=== PATIENT | male | born 1970 | race Two or more races ===

== ENCOUNTER 2018-06-03 18:15 | Inpatient (IN) | payer OTHER ==
[2018-06-03 19:43] LABS: Absolute Lymphocytes (CBC) 0.9 K/uL (0.7-4.9); Absolute Monocytes 0.5 K/uL (0.1-1.3); Absolute Neutrophil 2.9 K/uL (1.8-8.0); Basophils % 0.8 % (0-1.3); Hematocrit 37.2 % (39.6-49.0); Lymphocytes % 19.7 % (15.3-44.8); MPV 9.5 fL (7.6-11.3); Monocytes % 11.3 % (3.3-12.3); RBC Red Blood Cell Count 4.55 M/uL (4.33-5.43)
[2018-06-03] MEDS ORDERED: NA CHLORIDE 0.9% 1,000 ML ONE (19:48)
[2018-06-03 19:55] LABS: Potassium 3.4 mmol/L (3.5-5.1)
--- NOTE | 2018-06-03 20:13 | ER ---
Nurse's Notes [facility] Name: Ned Melgar Age: 48 yrs Sex: Male : 1970 Arrival Date: 06/03/2018 Time: 18:17 Bed 6 Private MD: Diagnosis: Septic Arthritis left knee Presentation: 06/03 18:21 Presenting complaint: Sent by Dr. Canas. Pt lad left knee aspirated, WBC 60k, told hb to come to ED. Now c/o left knee pain 8/10 and fever. TMAX 102. Transition of care: patient was not received from another setting of care. Onset of symptoms was June 01, 2018. Risk Assessment: Do you want to hurt yourself or someone else?. Care prior to arrival: Medication(s) given: Tylenol, at 1400. 18:21 Method Of Arrival: Wheelchair hb 18:21 Acuity: NGUYỄN 3 hb 19:13 Initial Sepsis Screen: Does the patient meet any 2 criteria? HR > 90 bpm. No. Patient's jl7 initial sepsis screen is negative. Does the patient have a suspected source of infection? Yes: Skin breakdown/wound. Historical: - Allergies: 18:24 No Known Allergies; hb - Home Meds: 18:24 Symbicort inhalation inhalation [Active]; Albuterol Inhl [Active]; hb - PMHx: 18:24 Asthma; hb - PSHx: 18:24 None; hb - Immunization history:: Adult Immunizations up to date. - Social history:: Smoking status: Patient/guardian denies using tobacco. - Ebola Screening: : No symptoms or risks identified at this time. Screenin:13 Abuse screen: Denies threats or abuse. Denies injuries from another. Nutritional jl7 screening: No deficits noted. Tuberculosis screening: No symptoms or risk factors identified. Fall Risk IV access (20 points). Gait- Impaired (20 pts.). Total Alcaraz Fall Scale indicates Low Risk Score (25-44 pts). Fall prevention measures have been instituted. Side Rails Up X 2 Placed close to Nursing Station Frequent Obs/Assesments occuring Family Present and informed to notify staff if they need to leave bedside As available Patient and Family Educated on Fall Prevention Program and strategies. Assessment: 18:43 General: Appears uncomfortable, Behavior is calm, cooperative. Pain: Complains of pain pc1 in left knee Pain radiates to left leg Pain currently is 8 out of 10 on a pain scale. Quality of pain is described as pressure, Is continuous. 18:45 Neuro: Level of Consciousness is awake, alert, obeys commands, Oriented to person, pc1 place, time, situation, Library Director are equal bilaterally Weakness in left leg(s) foot/feet Speech is normal. Cardiovascular: Capillary refill < 3 seconds in bilateral fingers Patient's skin is warm and dry. Respiratory: Airway is patent Respiratory effort is even, unlabored, Respiratory pattern is regular, symmetrical, Breath sounds are clear bilaterally. GI: No signs and/or symptoms were reported involving the gastrointestinal system. : No signs and/or symptoms were reported regarding the genitourinary system. EENT: No signs and/or symptoms were reported regarding the EENT system. Derm: Skin is intact, is healthy with good turgor, Skin is dry, Skin is pink, warm \T\ dry. Skin temperature is warm. Musculoskeletal: Capillary refill < 3 seconds, in bilateral fingers. Range of motion: limited in left knee and left ankle Swelling present in left ankel and left knee Tenderness present in left knee Reports pain in left knee. 19:40 Reassessment: Patient appears in no apparent distress at this time. Patient and/or jd3 family updated on plan of care and expected duration. Pain level reassessed. Patient is alert, oriented x 3, equal unlabored respirations, skin warm/dry/pink. awaiting blood results. 20:54 Reassessment: Patient appears in no apparent distress at this time. Patient and/or jd3 family updated on plan of care and expected duration. Pain level reassessed. Patient is alert, oriented x 3, equal unlabored respirations, skin warm/dry/pink. Vital Signs: 18:24 BP 161 / 100; Pulse 112; Resp 16; Temp 99; Pulse Ox 100% on R/A; Pain 8/10; hb 18:45 BP 145 / 103; Pulse 116; Resp 18; Pulse Ox 98% on R/A; Pain 8/10; pc1 19:41 BP 143 / 96; Pulse 112; Resp 18 S; Pulse Ox 100% on R/A; jd3 20:53 BP 168 / 101; Pulse 111; Resp 16 S; Pulse Ox 100% on R/A; jd3 ED Course: 18:17 Patient arrived in ED. ss4 18:23 Triage completed. hb 18:24 Arm band placed on. hb 18:26 Nissa Rosario, CINDY is Primary Nurse. jl7 18:37 Greyson Guillen PA is PHCP. jr8 18:37 Rj Madrigal MD is Attending Physician. jr8 19:14 Patient has correct armband on for positive identification. Placed in gown. Bed in low jl7 position. Call light in reach. Side rails up X 1. Pulse ox on. NIBP on. 19:19 Primary Nurse role handed off by Nissa Rosario RN jl7 19:31 Aureliano Fernandez, CINDY is Primary Nurse. jd3 20:12 Tran Junior MD is Hospitalizing Provider. jr8 21:14 No provider procedures requiring assistance completed. Patient admitted, IV remains in jd3 place. Administered Medications: 19:40 Drug: NS 0.9% 1000 ml Route: IV; Rate: 1000 ml; Site: right forearm; jd3 21:16 Follow up: Response: No adverse reaction; IV Status: Completed infusion jd3 19:59 CANCELLED (Physician Discretion): vancoMYCIN 1 grams IVPB once over 2 hrs jr8 19:59 CANCELLED (Physician Discretion): Rocephin 1 grams IV at calculated rate once; Given jr8 slow IV push per pharmacy instructions Outcome: 19:14 Attestation : I agree with everything charted by Thien Quintanilla, Student Nurse. jl7 20:12 Decision to Hospitalize by Provider. jr8 21:15 Admitted to OR accompanied by nurse, via wheelchair, with chart, Report called to j report given to OR nurse 21:15 Condition: stable 21:15 Instructed on the need for admit, Demonstrated understanding of instructions. 21:16 Patient left the ED. jd3 Signatures: Greyson Guillen PA PA jr8 Hattie Montana RN RN Nissa Rosario RN RN jl7 Aureliano Fernandez RN RN octaviano Quintanilla, Ara Whitley ss4 Corrections: (The following items were deleted from the chart) 18:24 18:21 Presenting complaint: Sent by Dr. Canas. Pt lad left knee aspirated, WBC 60k, hb told to come to ED. Pt c/o left knee pain 8/ and fever. TMAX 102 hb 18:51 18:43 Pain: Complains of pain in left knee pc1 pc1
--- NOTE | 2018-06-03 20:13 | EDPHYS ---
Physician Documentation [facility] Name: Ned Melgar Age: 48 yrs Sex: Male : 1970 Arrival Date: 06/03/2018 Time: 18:17 Bed 6 Private MD: ED Physician Rj Madrigal HPI: 06/03 19:50 This 48 yrs old Male presents to ER via Wheelchair with complaints of Knee Pain. jr8 19:50 Onset: The symptoms/episode began/occurred gradually, 3 day(s) ago. Modifying factors: jr8 The symptoms are alleviated by nothing. the symptoms are aggravated by movement, weight bearing, bending knee. Associated signs and symptoms: Pertinent positives: fever, swelling, warmth. Treatment prior to arrival includes: alex wrap, elevation of the extremity, therapeutic/diagnostic tap . Severity of symptoms: At their worst the symptoms were moderate, in the emergency department the symptoms have improved, mildly. The patient has not experienced similar symptoms in the past. The patient has been recently seen by a physician:. Patient stated that he strained his knee the other day. Had a lot of swelling. Stated that he saw ortho and had it drained. Cytology came back with elevated WBC count. Was sent to ED for further work up to assess for septic joint. Patient stated that he had been running fever . Historical: - Allergies: 18:24 No Known Allergies; hb - Home Meds: 18:24 Symbicort inhalation inhalation [Active]; Albuterol Inhl [Active]; hb - PMHx: 18:24 Asthma; hb - PSHx: 18:24 None; hb - Immunization history:: Adult Immunizations up to date. - Social history:: Smoking status: Patient/guardian denies using tobacco. - Ebola Screening: : No symptoms or risks identified at this time. ROS: 19:56 Eyes: Negative for injury, pain, redness, and discharge, ENT: Negative for injury, jr8 pain, and discharge, Neck: Negative for injury, pain, and swelling, Cardiovascular: Negative for chest pain, palpitations, and edema, Respiratory: Negative for shortness of breath, cough, wheezing, and pleuritic chest pain, Abdomen/GI: Negative for abdominal pain, nausea, vomiting, diarrhea, and constipation, Back: Negative for injury and pain, Skin: Negative for injury, rash, and discoloration, Neuro: Negative for headache, weakness, numbness, tingling, and seizure. 19:56 Constitutional: Positive for fever. 19:56 MS/extremity: Positive for pain, swelling, tenderness, warmth, of the left knee. Exam: 19:56 Eyes: Pupils equal round and reactive to light, extra-ocular motions intact. Lids and jr8 lashes normal. Conjunctiva and sclera are non-icteric and not injected. Cornea within normal limits. Periorbital areas with no swelling, redness, or edema. ENT: Nares patent. No nasal discharge, no septal abnormalities noted. Tympanic membranes are normal and external auditory canals are clear. Oropharynx with no redness, swelling, or masses, exudates, or evidence of obstruction, uvula midline. Mucous membranes moist. Neck: Trachea midline, no thyromegaly or masses palpated, and no cervical lymphadenopathy. Supple, full range of motion without nuchal rigidity, or vertebral point tenderness. No Meningismus. Cardiovascular: Regular rate and rhythm with a normal S1 and S2. No gallops, murmurs, or rubs. Normal PMI, no JVD. No pulse deficits. Respiratory: Lungs have equal breath sounds bilaterally, clear to auscultation and percussion. No rales, rhonchi or wheezes noted. No increased work of breathing, no retractions or nasal flaring. Abdomen/GI: Soft, non-tender, with normal bowel sounds. No distension or tympany. No guarding or rebound. No evidence of tenderness throughout. Back: No spinal tenderness. No costovertebral tenderness. Full range of motion. Skin: Warm, dry with normal turgor. Normal color with no rashes, no lesions, and no evidence of cellulitis. Neuro: Awake and alert, GCS 15, oriented to person, place, time, and situation. Cranial nerves II-XII grossly intact. Motor strength 5/5 in all extremities. Sensory grossly intact. Cerebellar exam normal. Normal gait. 19:56 Musculoskeletal/extremity: Extremities: grossly normal except: noted in the left knee: pain, swelling, tenderness, warm to touch. No erythema noted, ROM: full active range of motion, limited passive range of motion, limited active range of motion due to pain, limited passive range of motion due to pain, Circulation is intact in all extremities. Sensation intact. Vital Signs: 18:24 BP 161 / 100; Pulse 112; Resp 16; Temp 99; Pulse Ox 100% on R/A; Pain 8/10; hb 18:45 BP 145 / 103; Pulse 116; Resp 18; Pulse Ox 98% on R/A; Pain 8/10; pc1 19:41 BP 143 / 96; Pulse 112; Resp 18 S; Pulse Ox 100% on R/A; jd3 20:53 BP 168 / 101; Pulse 111; Resp 16 S; Pulse Ox 100% on R/A; jd3 MDM: 18:37 Patient medically screened. jr8 19:56 Data reviewed: vital signs, nurses notes, lab test result(s), and as a result, I will [facility] admit patient. Data interpreted: Pulse oximetry: on room air is 100 %. Interpretation: normal. Counseling: I had a detailed discussion with the patient and/or guardian regarding: the historical points, exam findings, and any diagnostic results supporting the discharge/admit diagnosis, lab results, the need for further work-up and treatment in the hospital. 20:11 ED course: Consulted Dr. Proctor. Wants to take patient to surgery . [facility] 06/03 19:14 Order name: CBC with Diff; Complete Time: 19:50 [facility] 06/03 19:14 Order name: Basic Metabolic Panel; Complete Time: 19:57 [facility] 06/03 19:14 Order name: Blood Culture Adult (2) [facility] 06/03 19:14 Order name: IV; Complete Time: 19:32 [facility] 06/03 20:00 Order name: Surgical Prep; Complete Time: 20:18 [facility] 06/03 20:00 Order name: Surgical Consent; Complete Time: 20:18 [facility] 06/03 20:00 Order name: NPO; Complete Time: 20:14 [facility] 06/03 20:47 Order name: CONS Pharmacy Consult [facility] 06/03 20:47 Order name: CONS Physician Consult [facility] 06/03 20:47 Order name: NPO EDKS Administered Medications: 19:40 Drug: NS 0.9% 1000 ml Route: IV; Rate: 1000 ml; Site: right forearm; jd3 21:16 Follow up: Response: No adverse reaction; IV Status: Completed infusion jd3 19:59 CANCELLED (Physician Discretion): vancoMYCIN 1 grams IVPB once over 2 hrs jr8 19:59 CANCELLED (Physician Discretion): Rocephin 1 grams IV at calculated rate once; Given jr8 slow IV push per pharmacy instructions Disposition: 06/04 07:22 Co-signature as Attending Physician, Rj Madrigal MD I agree with the assessment and kdr plan of care. Disposition: 06/03/18 20:12 Hospitalization ordered by Tran Junior for Inpatient Admission. Preliminary diagnosis is Septic Arthritis left knee. - Bed requested for Telemetry/MedSurg (observation). - Status is Inpatient Admission. jd3 - Condition is Stable. - Problem is new. - Symptoms are unchanged. UTI on Admission? No Signatures: Dispatcher [employer] EDMS Karen Rajan RN RN aa1 Rj Madrigal MD MD [facility] Greyson Guillen PA PA jr8 Hattie Montana RN RN Aureliano Fernandez RN RN jd3 Corrections: (The following items were deleted from the chart) 06/03 19:59 19:56 vancoMYCIN 1 grams IVPB once over 2 hrs ordered. 8 8 19:59 19:56 Rocephin 1 grams IV at calculated rate once; Given slow IV push per pharmacy jr8 instructions ordered. jr8 20:41 20:12 Hospitalization Ordered by Tran Junior MD for Inpatient Admission. Preliminary aa1 diagnosis is Septic Arthritis left knee. Bed requested for Telemetry/MedSurg (Inpatient). Status is Inpatient Admission. Condition is Stable. Problem is new. Symptoms are unchanged. UTI on Admission? No. jr8 20:41 20:41 06/03/2018 20:12 Hospitalization Ordered by Tran Junior MD for Inpatient aa1 Admission. Preliminary diagnosis is Septic Arthritis left knee. Bed requested for Operating Room. Status is Inpatient Admission. Condition is Stable. Problem is new. Symptoms are unchanged. UTI on Admission? No. aa1 21:16 20:41 06/03/2018 20:12 Hospitalization Ordered by Tran Junior MD for Inpatient jd3 Admission. Preliminary diagnosis is Septic Arthritis left knee. Bed requested for Telemetry/MedSurg (observation). Status is Inpatient Admission. Condition is Stable. Problem is new. Symptoms are unchanged. UTI on Admission? No. aa1
[2018-06-03] MEDS ORDERED: ACETAMINOPHEN 500 MG TAB PO PRN (20:44)
[2018-06-03] MEDS ORDERED: SUCCINYLCHOLINE 20 MG/ML (10 ML) IV ONE ×2 (21:18→21:19)
[2018-06-03] MEDS ORDERED: PROPOFOL 200 MG/20 ML VIAL IV ONE (21:23)
[2018-06-03] MEDS ORDERED: LIDOCAINE 2% MPF 5 ML VIAL ONE (21:24)
[2018-06-03] MEDS ORDERED: FENTANYL CITR 100 MCG/2 ML ONE ×2 (21:24→22:13)
[2018-06-03] MEDS ORDERED: ROCURONIUM 50 MG/5 ML VIAL IV ONE (21:24)
[2018-06-03] MEDS ORDERED: Ringers Lactate 1,000 ML IV ONE (21:31)
[2018-06-03] MEDS ORDERED: ONDANSETRON 4 MG/2 ML VIAL ONE (22:00)
[2018-06-03] MEDS ORDERED: KETOROLAC 30 MG/ML INJ ONE (22:00)
[2018-06-03] MEDS ORDERED: DEXAMETHASONE 10 MG/ML VIAL ONE (22:06)
[2018-06-03] MEDS ORDERED: LABETALOL 20 MG/4ML SYRINGE IV ONE (22:21)
[2018-06-03] MEDS: HYDROMORPHONE HCL 1 MG/ML INJ ONE ×2 (23:00→23:03)
--- NOTE | 2018-06-03 23:01 | P.BOP ---
Preoperative diagnosis: left knee probable septic arthritis Postoperative diagnosis: same Primary procedure: left knee arthoscopic irrigation and synovectomy Estimated blood loss: 20 ccs Specimen: cx sent of synovial fluid Anesthesia: General Complications: None Drain(s): Wound drain Transferred to: Recovery Room Condition: Good
[2018-06-03] MEDS ORDERED: DIPHENHYDRAMINE 50 MG/ML VIAL ONE (23:23)
[2018-06-04] MEDS: NA CHLORIDE 0.9% 1,000 ML IV SCH ×4 (00:09→17:00)
[2018-06-04] MEDS: MORPHINE 2 MG/ML SYR IV PRN ×2 (00:18→03:56)
[2018-06-04 00:44] VITALS: BMI 25.8
[2018-06-04] MEDS ORDERED: NAPROXEN 250 MG TAB PO PRN (01:13)
[2018-06-04] MEDS: Levofloxacin 750mg IV 750 MG/150 ML BAG IV SCH (01:47)
[2018-06-04] MEDS ORDERED: VANCOMYCIN 1 GM/VIAL ONE (03:47)
[2018-06-04] MEDS ORDERED: VANCOMYCIN 500 MG/VIAL ONE (03:49)
[2018-06-04] MEDS: VANCOMYCIN 1.25 GM in NA CHLORIDE 0.9% 250 ML IVPB SCH ×2 (03:51→14:50)
[2018-06-04] MEDS ORDERED: NA CHLORIDE 0.9% 250 ML ONE (03:52)
--- NOTE | 2018-06-04 06:16 | CON ---
Date of Consultation: 06/03/2018 History: This is my first time seeing this patient to my knowledge. He is a 48 -year-old male who has asthma, was treated with albuterol and Symbicort. Otherwise denies any other medical history. He gives a history of his knee. Quite sometime ago, he injured his knee. He was seen by another orthopedist who drained his knee and he was diagnosed with an ACL strain, unsure whether or not this was a complete tear or partial tear. He apparently went on to do fairly well until recently when he had another injury to his knee. He was seen by an outside physician, Dr. Mark Rojas, and Giancarlo Whitley PA-C. There was some concern for septic knee. Therefore, an aspiration was done and under report of Dr. Rojas, he had white blood cell count of 60,000. He has had increasing left knee pain, becoming so severe that he was unable to participate in having any labs drawn for this, basically being homebound. He arrived back in Dr. Rojas's office now with a fever. Family says his fever has been up to 102. Physical Examination: Vital Signs: He is slightly warm overall. He does have an increased temperature of 99. His white blood cell count is normal at 4.4. Musculoskeletal: His knee does have a 2+ effusion, pain with any movement or manipulation. There is some mild erythema. Assessment: A 48-year-old male now with a fever, septic knee, and an aspirate which is extremely suspicious for septic knee. Plan: At this time, we spoke with Anesthesia, and although he has not been strictly NPO, I think that this has been going on long enough with regard to possible septic arthritis in his knee. I think that placing this young healthy individual for an overnight stay waiting operative intervention tomorrow is most likely going to put his knee at permanent risk. Therefore, all risks, benefits, and alternatives to arthroscopic irrigation and debridement with admission and IV antibiotics have been discussed with the patient. He will be admitted under the care of the hospitalist. All his questions have been invited and answered today. /POOJA Voice ID: [id number] Report ID: [id number] JACQUELYN
--- NOTE | 2018-06-04 06:56 | OP ---
Date of Procedure: 06/03/2018 Surgeon: Mauricio Proctor MD Preoperative Diagnosis: Probable septic arthritis, left knee. Postoperative Diagnosis: Probable septic arthritis, left knee. Procedure: Left arthroscopic irrigation and debridement of knee with placement of a drain. Estimated Blood Loss: 20 cc. Complications: There were no complications. Specimen: There were no pathology specimens sent. However, there are 2 cultures sent. Indications For Operation: Mr. Melgar is a 48-year-old male who unfortunately started having pain in his knee reportedly after an injury. He was seen at an outside clinic by another orthopedist and PA. An aspiration was done at that time. They sent the aspirate to the lab and also wanted him to go for a blood work. Unfortunately, his pain became so severe by his report that he was unable to proceed to the lab to get his blood work. However, he did return with increased pain and fever to the original orthopedist. This orthopedist is unavailable, but I had direct communication with him that there were 60,000 white cells. On visual inspection of the patient, he had 2+ effusion with pain with any movement or manipulation of his knee. He also had reported temperature of 102 per his family earlier today, although he is only slightly febrile at 99. His white count today is normal at 4.4. All risks, benefits, and alternatives to arthroscopic irrigation and debridement for presumed septic knee were discussed with the patient. He and his family state they understand things as presented and wished to proceed. Description Of Procedure: The patient was taken to the operating room and placed in supine position. General anesthesia was obtained by staff. Following this, well-padded tourniquet placed on superior left thigh. His left lower extremity was then prepped and draped in the usual sterile fashion for the procedure. Following this, a standard superomedial arthroscopy portal was then placed for placement of a drainage needle. Some walter, although not frankly purulent fluid was expressed approximately 120 cc. This was placed on culture swabs and sent for culture. Following this, a standard inferolateral arthroscopy portal was then placed for placement of the camera. Camera was then placed into the knee and approximately 2 L of sterile saline was placed and allowed to run freely. This was followed by investigation of the knee. Did not appear to have any medial or lateral meniscal tear. There did appear to be some damage to the ACL; however, the ACL in general appeared to be intact. There was abundant synovial tissue throughout the knee with some wispy bands which appeared to be quite tenuous. An inferomedial arthroscopy was then performed under direct vision using a needle for localization. This allowed for placement of a probe and a shaver. The knee was then sequentially debrided of synovium starting in the notch. This was followed by debriding from approximately 2 o'clock position all the way down to approximately 8 o'clock position. On camera, I was able to see into the lateral gutter and there did appear to be quite a bit of excessive synovium in this area as well, and to complete the synovectomy, a superolateral portal was made for placement of a shaver, synovium in this area was then shaved. A complete synovial debridement was obtained. Following this, the inferior arthroscopy portal and lateral arthroscopy portals were closed using azael. A medium Hemovac drain had been placed in the superomedial portal and this was closed using 2-0 nylon suture with a small loop around the drain itself. The knee was brought through full range of motion. There was no sign of block. Pivot-shift test was performed both before and after the procedure to ensure that the ACL was functional. There was no sign of pivot shift or rotatory instability either before or after the procedure. Following this, he was placed in a very well-padded sterile dressing as well as a knee immobilizer, awakened and taken to recovery room in good condition. There were no complications. /POOJA Voice ID: [id number] Report ID: [id number] JACQUELYN
[2018-06-04] MEDS ORDERED: INFLUENZA VACCINE (for 3y+) 0.5 ML DOSE IMVAC ONE (08:00)
--- NOTE | 2018-06-04 08:36 | P.HP ---
Certification for Inpatient Patient admitted to: Inpatient With expected LOS: >2 Midnights Patient will require the following post-hospital care: Nursing Home Practitioner: I am a practitioner with admitting privileges, knowledge of patient current condition, hospital course, and medical plan of care. Services: Services provided to patient in accordance with Admission requirements found in Title 42 Section 412.3 of the Code of Federal Regulations Patient History Date of Service: 06/03/18 Reason for admission: septic arthritis History of Present Illness: Patient is a 48-year-old gentleman who came to the hospital with swelling of the left knee. Patient was found to have septic arthritis. Patient started having problems with his knee in early April. He was out of town working and he developed some fluid. This was drained by an orthopedic in [place], [place]. He had done well up until a few days ago when the knees swell up after falling. He went to Dr. Rojas in his office performed an arthrocentesis. White blood cell can back elevated at 60,000 thousand. Patient was admitted to the hospital for further evaluation. Orthopedic surgeon, at [place] to come to the OR to clean out the knee. Patient will need IV antibiotic therapy pending culture results. Allergies No Known Allergies Allergy (Verified 12/04/13 05:13) Home Medications: Albuterol Inhaler [Ventolin Inhaler*] 2 puff IH PRN PRN 06/04/18 Budesonide/Formoterol Fumarate [Symbicort 160-4.5 Mcg Inhaler] 2 puff IH BID - Past Medical/Surgical History Has patient received pneumonia vaccine in the past: No Diabetic: No -: Asthma -: Pancreatitis - Family History Mother Medical History: Cancer Notes: Stomach cancer Brother Medical History: Heart disease Father Medical History: Liver disease - Social History Smoking Status: Never smoker Alcohol use: Yes CD- Drugs: No Caffeine use: Yes Place of Residence: Home Review of Systems 10-point ROS is otherwise unremarkable Physical Examination - Vital Signs Temperature: 97.6 F Blood Pressure: 138/78 Pulse: 81 Respirations: 18 Pulse Ox (%): 98 - Physical Exam General: Alert, In no apparent distress, Oriented x3 HEENT: Atraumatic, PERRLA, Mucous membr. moist/pink, EOMI, Sclerae nonicteric Neck: Supple, 2+ carotid pulse no bruit, No LAD, Without JVD or thyroid abnormality Respiratory: Clear to auscultation bilaterally, Normal air movement Cardiovascular: Regular rate/rhythm, Normal S1 S2, No murmurs Gastrointestinal: Normal bowel sounds, Soft and benign, Non-distended, No tenderness Musculoskeletal: No clubbing, Swelling, Erythema, Tenderness, Warmth Integumentary: No rashes Neurological: Normal speech, Normal tone, Sensation intact, Cranial nerves 3-12 intact, Normal affect, Abnormal gait, Abnormal strength Lymphatics: No axilla or inguinal lymphadenopathy - Studies Laboratory Data (last 24 hrs) 06/03/18 07:00: Sodium 138, Potassium 3.4 L, BUN 9, Creatinine 0.95, Glucose 124 H 06/03/18 07:00: WBC 4.4, Hgb 12.3 L, Hct 37.2 L, Plt Count 184 Assessment & Plan - Problems (Diagnosis) (1) Septic arthritis Current Visit: Yes Status: Acute Qualifiers: Septic arthritis location: knee Laterality: left - Plan 1. Continue with IV antibiotic 2. Continue with local wound care 3. Orthopedic consultation 4. Gentle IV hydration 5. Monitor CBC 6. Monitor hemodynamics closely 7. Pain control 8. GI and DVT prophylaxis Discharge Plan: Home Plan to discharge in: Greater than 2 days - Advance Directives Does patient have a Living Will: No Does patient have a Durable POA for Healthcare: No - Code Status/Comfort Care Code Status Assessed: Yes Code Status: Full Code Time Spent Managing PTS Care (In Minutes): 45
[2018-06-04] MEDS ORDERED: MORPHINE 2 MG/ML SYR IV PRN (10:42)
[2018-06-04] MEDS: HYDROCODONE/APAP 7.5/325 MG TAB PO SCH ×3 (10:54→23:59)
--- NOTE | 2018-06-04 13:31 | P.PN ---
Subjective Date of Service: 06/04/18 Chief Complaint: septic arthritis Pt seen and examined. Chart Reviewed. Case DW with Ortho. Increase drainage at the left knee. C/o Pain which is not relieved by Morphine. Denies CP, SOB and N/ v Review of Systems 10-point ROS is otherwise unremarkable Physical Examination - Vital Signs Temperature: 97.6 F Blood Pressure: 138/78 Pulse: 81 Respirations: 18 Pulse Ox (%): 98 - Physical Exam General: Alert, In no apparent distress HEENT: Atraumatic, PERRLA, EOMI Neck: Supple, JVD not distended Respiratory: Clear to auscultation bilaterally, Normal air movement Cardiovascular: Regular rate/rhythm, Normal S1 S2 Gastrointestinal: Normal bowel sounds, No tenderness Musculoskeletal: Erythema, Tenderness, Other (Left Knee in splint and wound vac in place. ) Integumentary: No rashes Neurological: Normal speech, Normal tone, Normal affect Lymphatics: No axilla or inguinal lymphadenopathy - Studies Laboratory Data (last 24 hrs) 06/03/18 07:00: Sodium 138, Potassium 3.4 L, BUN 9, Creatinine 0.95, Glucose 124 H 06/03/18 07:00: WBC 4.4, Hgb 12.3 L, Hct 37.2 L, Plt Count 184 Medications List Reviewed: Yes Assessment And Plan - Current Problems (Diagnosis) (1) Septic arthritis Current Visit: Yes Status: Acute Plan: pt with Septic Arthritis. -S.P Incision and Drainage with Orthopedics -IV vanc and levaquin for now -Ortho consulted. -Awaiting Wound culture -pain mgmt with norco suzy and Morphine for breakthrough pain Qualifiers: Septic arthritis location: knee Septic arthritis organism: due to unspecified organism Laterality: left Qualified Code(s): M00.9 - Pyogenic arthritis, unspecified Discharge Plan: Home Plan to discharge in: Greater than 2 days - Code Status/Comfort Care Code Status Assessed: Yes Critical Care: No
[2018-06-04 23:42] VITALS: O2SAT 99
[2018-06-05] MEDS ORDERED: TEMAZEPAM 15 MG CAP PO PRN (00:18)
[2018-06-05] MEDS: VANCOMYCIN 1.25 GM in NA CHLORIDE 0.9% 250 ML IVPB SCH ×2 (01:19→14:00)
[2018-06-05] MEDS: NA CHLORIDE 0.9% 1,000 ML IV SCH ×2 (03:05→13:00)
[2018-06-05] MEDS: Levofloxacin 750mg IV 750 MG/150 ML BAG IV SCH (03:06)
--- NOTE | 2018-06-05 05:09 | PN ---
Date of Progress Note: 06/04/2018 Subjective: The patient is seen today. He is resting in his bed. He has a knee immobilizer on. Th ere is some blood in the drain, however, it appears to have stopped draining. Cultures and Gram stai n from last night's irrigation and debridement are not available. He has been afebrile since surgery and at this time, I instructed the nurses to change dressing and remove the drain and placed back in a sterile dressing and knee immobilizer. He has not seen Physical Therapy yet today. This time, we will most likely see him tomorrow and hopefully he will be up with Physical Therapy. We will check cultures as well. JACI Voice ID: [id number] Report ID: [id number]
[2018-06-05] MEDS: HYDROCODONE/APAP 7.5/325 MG TAB PO SCH ×2 (05:30→11:21)
--- NOTE | 2018-06-05 13:02 | P.DS ---
Admission Date: 06/03/18 Discharge Date: 06/05/18 Disposition: ROUTINE DISCHARGE Discharge Condition: GOOD Reason for Admission: septic arthritis Consultations: Orthopedics - Problems (1) Septic arthritis Current Visit: Yes Status: Acute Qualifiers: Septic arthritis location: knee Septic arthritis organism: due to unspecified organism Laterality: left Qualified Code(s): M00.9 - Pyogenic arthritis, unspecified Brief History of Present Illness: Patient is a 48-year-old gentleman who came to the hospital with swelling of the left knee. Patient was found to have septic arthritis. Patient started having problems with his knee in early April. He was out of town working and he developed some fluid. This was drained by an orthopedic in [place], [place]. He had done well up until a few days ago when the knees swell up after falling. He went to Dr. Rojas in his office performed an arthrocentesis. White blood cell can back elevated at 60,000 thousand. Patient was admitted to the hospital for further evaluation. Orthopedic surgeon, at [place] to come to the OR to clean out the knee. Patient will need IV antibiotic therapy pending culture results. Hospital Course: Overall during the hospital stay pt remained stable. Pt was admitted to the hospital for septic Arthritis. pt was seen at the Dr Rojas office and had arthocentesis and apparently had 60,000 WBC seen on the fluids analysis. pt was thus admitted to the hospital for Washout of the Knee. Pt was seen by Dr Proctor who did cleanout of the knee and wound culture.Culture was negative and thus pt was discharged home under stable condition after being observed for 24hrs. Pt was given Bactrim DS for abx and Tramadol for pain. Pt also worked with PT here in the hospital Vital Signs/Physical Exam: Temp Pulse Resp BP Pulse Ox 97.1 F 96 H 18 168/85 H 100 06/05/18 08:00 06/05/18 08:00 06/05/18 08:00 06/05/18 08:00 06/05/18 08:00 General: Alert, In no apparent distress HEENT: Atraumatic, PERRLA, EOMI Neck: Supple, JVD not distended Respiratory: Clear to auscultation bilaterally, Normal air movement Cardiovascular: Regular rate/rhythm, Normal S1 S2 Gastrointestinal: Normal bowel sounds, No tenderness Musculoskeletal: No tenderness Integumentary: No rashes Neurological: Normal speech, Normal tone, Normal affect Lymphatics: No axilla or inguinal lymphadenopathy Laboratory Data at Discharge: WBC 4.4 K/uL (4.3-10.9) 06/03/18 07:00 Hgb 12.3 g/dL (13.6-17.9) L 06/03/18 07:00 Hct 37.2 % (39.6-49.0) L 06/03/18 07:00 Plt Count 184 K/uL (152-406) 06/03/18 07:00 Sodium 138 mmol/L (136-145) 06/03/18 07:00 Potassium 3.4 mmol/L (3.5-5.1) L 06/03/18 07:00 BUN 9 mg/dL (7-18) 06/03/18 07:00 Creatinine 0.95 mg/dL (0.55-1.3) 06/03/18 07:00 Glucose 124 mg/dL (74-106) H 06/03/18 07:00 Home Medications: Albuterol Inhaler [Ventolin Inhaler*] 2 puff IH PRN PRN 06/04/18 Budesonide/Formoterol Fumarate [Symbicort 160-4.5 Mcg Inhaler] 2 puff IH BID Sulfamethoxazole/Trimethoprim [Bactrim Ds Tablet] 1 each PO BID #20 tablet 06/05 traMADol HCL [Ultram*] 50 mg PO Q6H PRN #30 tab 06/05/18 New Medications: Sulfamethoxazole/Trimethoprim [Bactrim Ds Tablet] 1 each PO BID #20 tablet traMADol HCL [Ultram*] 50 mg PO Q6H PRN #30 tab PRN Reason: Pain Diet: Regular Activity: Ad reinaldo Followup: Mauricio Proctor MD [ACTIVE - CAN ADMIT] - 1 Week
[2018-06-05 13:09] VITALS: BP 119/90; TEMP 97.5
== END 2018-06-05 14:10 | disposition home or self-care (01) | DRG 550 ==
LOC: ER 18:15 → 2ND 20:45
PROVIDERS: ADMIT Hospitalist; ATTEND Family Medicine
PROC: 0SBD4ZX Excision of Left Knee Joint, Percutaneous Endoscopic Approach, Diagnostic (ICD-10-PCS; principal; 2018-06-03 21:00)
DX: M00.9 Pyogenic arthritis, unspecified (principal); J45.909 Unspecified asthma, uncomplicated
CPT/HCPCS: 36415; 80048; 85025; 87040; 87070; 87075; 87205; 88304; 88305; 96360; 96361; 97162; 99285; G0008; J0330; J1100; J1170; J2270; J2405; J2704; J3010; J7030; Q2035

== ENCOUNTER 2019-10-12 12:20 | Observation (INO) | payer OTHER, SELFPAY ==
--- OUTSIDE RECORDS SUMMARY | 2019-10-12 12:22 | XMS REPORT | Continuity of Care Document ---
:1970 Author Organization [facility] t Address [address] [place] [address] Care Team Providers Name Role Phone Romario Crocker Attending Clinician Problems This patient has no known problems. Allergies, Adverse Reactions, Alerts This patient has no known allergies or adverse reactions. Medications This patient has no known medications. Procedures This patient has no known procedures. Encounters Start End Encounter Admission Attending Care Care Encounter Source Date/Time Date/Time Type Type Clinicians Facility Department ID 2018-10-27 2018-10-27 Office DEV Whitley [id number] 13 15:47:24 16:02:24 Visit [facility] [id number] Surgical [id number] Specialti [id number] es 198 [place] 2018-10-27 2018-10-27 Letter DEV Whitley [id number] 15 00:00:00 00:00:00 (Out) [facility] [id number] Surgical [id number] Specialti [id number] es [address] [place] Results This patient has no known results.
[2019-10-12] MEDS ORDERED: NA CHLORIDE 0.9% 1,000 ML ONE ×2 (13:48→15:51)
[2019-10-12] MEDS ORDERED: MORPHINE 4 MG/ML SYR ONE ×2 (13:48→15:42)
[2019-10-12] MEDS ORDERED: ONDANSETRON 4 MG/2 ML VIAL ONE (13:48)
[2019-10-12 14:07] LABS: Absolute Lymphocytes (CBC) 0.7 K/uL (0.7-4.9); Basophils % 0.4 % (0-1.3); Hematocrit 38.3 % (39.6-49.0); Lymphocytes % 7.7 % (15.3-44.8); RBC Red Blood Cell Count 4.72 M/uL (4.33-5.43)
[2019-10-12 14:23] LABS: Albumin 3.5 g/dL (3.4-5.0); Bilirubin Direct 0.1 mg/dL (0-0.2); Bilirubin Total 0.4 mg/dL (0.2-1.0)
[2019-10-12 14:29] LABS: Blood Morphology Comment NOT SEEN (NOT SEEN); Platelet Estimate ADEQ
--- NOTE | 2019-10-12 14:31 | RAD REPORT ---
EXAM DESCRIPTION: CT - Abdomen Pelvis W Contrast - 10/12/2019 2:02 pm CLINICAL HISTORY: ABD PAIN, pain primarily epigastric, history of pancreatitis COMPARISON: CT ABD PELVIS W CONTRAST dated 11/25/2013 TECHNIQUE: Biphasic, helical CT imaging of the abdomen and pelvis was performed following 100 ml non -ionic IV contrast. No oral contrast administered. All CT scans are performed using dose optimization technique as appropriate and may include automated exposure control or mA/KV adjustment according to patient size. FINDINGS: No acute lung base abnormality. A few small pulmonary nodules are present under 6 mm in si ze. In the absence of any risk factors for this patient, no follow-up is recommended for this nodule pattern. Liver shows normal size with a very pronounced, diffuse fatty infiltration pattern. No focal liver le sions. Portal vein is normal. No splenic abnormality identified. Pancreatic calcifications are presen t. No solid or cystic mass. No acute pancreatitis findings. Gallbladder and biliary tree are also wit hout suspicious finding. Gallstones can be occult on CT imaging. Symmetric renal function is seen with no hydronephrosis or suspicious renal mass. No pyelonephritis o r acute parenchymal process. No bladder abnormalities. No adrenal abnormalities. No gastric dilatation or wall thickening. Duodenum is unremarkable. No acute large or small bowel pro cess seen. The appendix is normal. A few small sub centimeter lymph nodes are seen in the right lower quadrant. No free air, free fluid or inflammatory stranding. No mass or bulky lymphadenopathy. Sma ll inguinal hernias are present containing only fat. No prostate abnormality seen. No suspicious bony findings. IMPRESSION: Patient shows a very pronounced fatty infiltration pattern to the liver. No focal liver abnormality seen. No acute pancreatitis findings. The patient has calcifications from old pancreatitis. No acute GI abnormality identified. No specific finding to explain epigastric pain pattern.
[2019-10-12] MEDS ORDERED: MAGNE/ALUM HYDROXD 30 ML UCUP ONE (15:51)
[2019-10-12] MEDS ORDERED: LIDOCAINE VISCOUS 2% SOLN 15 ML UDC ONE (15:51)
--- NOTE | 2019-10-12 16:26 | ER ---
Nurse's Notes [facility] Name: Ned Melgar Age: 49 yrs Sex: Male : 1970 Arrival Date: 10/12/2019 Time: 12:28 Bed 18 Private MD: Diagnosis: Abdominal and pelvic pain Presentation: 10/11 13:05 Chief complaint: Patient states: Epigastric pain since this morning. Had this before ca1 and was admitted for Pancreatitis on November 2012. Reports N/V/Diarrhea. Coronavirus screen: Client denies travel out of the [place] in the last 14 days. At this time, the client does not indicate any symptoms associated with coronavirus-19. Ebola Screen: Patient negative for fever greater than or equal to 101.5 degrees Fahrenheit, and additional compatible Ebola Virus Disease symptoms Patient denies exposure to infectious person. Patient denies travel to an Ebola-affected area in the 21 days before illness onset. No symptoms or risks identified at this time. Initial Sepsis Screen: Does the patient meet any 2 criteria? No. Patient's initial sepsis screen is negative. Does the patient have a suspected source of infection? No. Patient's initial sepsis screen is negative. Risk Assessment: Do you want to hurt yourself or someone else? Patient reports no desire to harm self or others. Onset of symptoms was October 12, 2019. 13:05 Method Of Arrival: Wheelchair ca1 13:05 Acuity: NGUYỄN 2 ca1 Historical: - Allergies: 13:20 Codeine; ca1 - Home Meds: 13:08 Seroquel Oral [Active]; Depakote Oral [Active]; ca1 - PMHx: 13:08 Asthma; Anxiety; ca1 - PSHx: 13:08 Knee surgery; ca1 - Immunization history:: Adult Immunizations up to date. - Social history:: Smoking status: Patient denies any tobacco usage or history of. Screenin:09 Abuse screen: Denies threats or abuse. Nutritional screening: No deficits noted. tw2 Tuberculosis screening: No symptoms or risk factors identified. Fall Risk None identified. Assessment: 13:10 General: Appears uncomfortable, well groomed, Behavior is cooperative, appropriate for tw2 age. Pain: Complains of pain in abdomen. Neuro: Level of Consciousness is awake, alert, obeys commands, Oriented to person, place, time, situation. Cardiovascular: Heart tones S1 S2 Patient's skin is warm and dry. Respiratory: Airway is patent Respiratory effort is even, unlabored, Respiratory pattern is regular, symmetrical, Breath sounds are clear bilaterally. GI: Abdomen is round Bowel sounds present X 4 quads. Abdomen is tender to palpation X 4 quads. Reports lower abdominal pain, upper abdominal pain, nausea, vomiting, since "i did drink last night but i know my diet probably isnt good either". : No signs and/or symptoms were reported regarding the genitourinary system. EENT: No signs and/or symptoms were reported regarding the EENT system. Derm: No signs and/or symptoms reported regarding the dermatologic system. Musculoskeletal: Range of motion: intact in all extremities. 13:12 Reassessment: pt states "when i had pancreatitis before i was hospitalized for 28 days".tw2 13:51 Reassessment: No changes from previously documented assessment. Patient and/or family tw2 updated on plan of care and expected duration. Pain level reassessed. Patient is alert, oriented x 3, equal unlabored respirations, skin warm/dry/pink. 14:27 Reassessment: No changes from previously documented assessment. Patient and/or family tw2 updated on plan of care and expected duration. Pain level reassessed. Patient is alert, oriented x 3, equal unlabored respirations, skin warm/dry/pink. Patient states feeling better. 15:35 Reassessment: No changes from previously documented assessment. Patient and/or family tw2 updated on plan of care and expected duration. Pain level reassessed. Patient is alert, oriented x 3, equal unlabored respirations, skin warm/dry/pink. Patient states symptoms have not improved. 16:48 Reassessment: No changes from previously documented assessment. Patient and/or family tw2 updated on plan of care and expected duration. Pain level reassessed. Patient is alert, oriented x 3, equal unlabored respirations, skin warm/dry/pink. Patient states symptoms have not improved. 17:30 Reassessment: Patient appears in no apparent distress at this time. No changes from tw2 previously documented assessment. Patient and/or family updated on plan of care and expected duration. Pain level reassessed. Patient is alert, oriented x 3, equal unlabored respirations, skin warm/dry/pink. Patient states feeling better. Vital Signs: 13:05 BP 148 / 106; Pulse 109; Resp 18 S; Temp 98.1(O); Pulse Ox 98% on R/A; Weight 68.04 kg ca1 (R); Height 5 ft. 6 in. (167.64 cm) (R); Pain 10/10; 13:50 BP 163 / 112; Pulse 105; Resp 18; Pulse Ox 98% on R/A; tw2 14:26 Pain 7/10; tw2 14:27 BP 158 / 94; Pulse 104; Resp 17; Pulse Ox 99% on R/A; tw2 15:29 BP 175 / 104; Pulse 105; Resp 18; Pulse Ox 98% on R/A; Pain 9/10; tw2 16:30 BP 148 / 97; Pulse 108; Resp 17; Temp 98.7(O); Pulse Ox 99% on R/A; tw2 16:46 Pain 7/10; tw2 17:30 BP 117 / 95; Pulse 101; Resp 17; Pulse Ox 97% on R/A; tw2 13:05 Body Mass Index 24.21 (68.04 kg, 167.64 cm) ca1 ED Course: 12:28 Patient arrived in ED. fj1 13:07 Triage completed. ca1 13:08 Arm band placed on right wrist. ca1 13:09 Monique Pena, CINDY is Primary Nurse. tw2 13:10 Placed in gown. Bed in low position. Call light in reach. Pulse ox on. NIBP on. tw2 13:37 Rj Madrigal MD is Attending Physician. kdr 13:40 Inserted saline lock: 20 gauge in right antecubital area, using aseptic technique. tw2 Blood collected. 14:02 CT Abd/Pelvis - IV Contrast Only In Process Unspecified. EDMS 16:17 Prince Saldaña MD is Hospitalizing Provider. kdr 17:41 No provider procedures requiring assistance completed. Patient admitted, IV remains in tw2 place. 17:48 Awaiting: unsuccessful attempt to call report at this time. tw2 Administered Medications: 13:43 Drug: NS 0.9% 1000 ml Route: IV; Rate: 1 bolus; Site: right antecubital; tw2 15:00 Follow up: Response: No adverse reaction; IV Status: Completed infusion; IV Intake: tw2 1000ml 13:43 Drug: Zofran (Ondansetron) 4 mg Route: IVP; Site: right antecubital; tw2 14:26 Follow up: Response: No adverse reaction; Nausea is decreased tw2 13:45 Drug: morphine 4 mg Route: IVP; Site: right antecubital; tw2 14:26 Follow up: Pain 7/10 Adult; Response: No adverse reaction; Pain is decreased; RASS: tw2 Alert and Calm (0) 15:35 Drug: morphine 4 mg Route: IVP; Site: right antecubital; tw2 16:46 Follow up: Pain 7/10 Adult; Response: No adverse reaction; Pain is decreased tw2 15:46 Drug: GI Cocktail without - (Maalox Suspension 30 ml, Lidocaine Liquid 2 % 15 tw2 ml) Route: PO; 17:09 Follow up: Response: No adverse reaction tw2 15:46 Drug: NS 0.9% 1000 ml Route: IV; Rate: 1 bolus; Site: right antecubital; tw2 17:00 Follow up: IV Status: Completed infusion; IV Intake: 1000ml tw2 17:06 Drug: Valium 5 mg Route: IVP; Site: right antecubital; tw2 17:42 Follow up: Response: No adverse reaction; Pain is decreased tw2 17:08 Drug: Banana Bag - (NS 0.9% 1000 ml, foLIC Acid 1 mg, Thiamine 100 mg, Multivitamin 1 tw2 amp) Route: IV; Rate: calculated rate; Site: right antecubital; 17:43 Follow up: IV Status: Infusion continued upon admission tw2 Intake: 15:00 IV: 1000ml; Total: 1000ml. tw2 17:00 IV: 1000ml; Total: 2000ml. tw2 Outcome: 16:26 Decision to Hospitalize by Provider. kdr 17:58 Admitted to Med/surg accompanied by tech, via wheelchair, room 228, Report called to tw2 CINDY Sanchez 17:58 Condition: stable 17:58 Instructed on the need for admit. 18:12 Patient left the ED. [email or web address] Signatures: Dispatcher [employer] EDMS Rj Madrigal MD MD kdr Wise, Tara, RN RN tw2 Taylor Ortega RN RN ca1 James, Frank [facility] Emili Parker RN RN [email or web address] Corrections: (The following items were deleted from the chart) 13:20 13:08 Allergies: No Known Allergies; ca1 ca1
--- NOTE | 2019-10-12 16:27 | EDPHYS ---
Physician Documentation [facility] Name: Ned Melgar Age: 49 yrs Sex: Male : 1970 Arrival Date: 10/12/2019 Time: 12:28 Bed 18 Private MD: ED Physician Rj Madrigal HPI: 10/12 07:55 This 49 yrs old Male presents to ER via Wheelchair with complaints of kdr Abdominal Pain, Fever, Vomiting. 07:56 The patient presents with abdominal pain in the epigastric area, in the upper abdomen. kdr Onset: The symptoms/episode began/occurred last night. The symptoms do not radiate. Associated signs and symptoms: Pertinent positives: nausea and vomiting, fever, Pertinent negatives: palpitations, shortness of breath, vomiting blood. The symptoms are described as achy, burning, crampy, sharp, steady. Modifying factors: The symptoms are alleviated by nothing, the symptoms are aggravated by movement, pressure, touching the area, walking. Severity of pain: At its worst the pain was moderate severe just prior to arrival, in the emergency department the pain is unchanged. The patient has experienced similar episodes in the past, a few times, Feels like prior pancreatitis . The patient has not recently seen a physician. Historical: - Allergies: 10/11 13:20 Codeine; ca1 - Home Meds: 13:08 Seroquel Oral [Active]; Depakote Oral [Active]; ca1 - PMHx: 13:08 Asthma; Anxiety; ca1 - PSHx: 13:08 Knee surgery; ca1 - Immunization history:: Adult Immunizations up to date. - Social history:: Smoking status: Patient denies any tobacco usage or history of. ROS: 10/12 07:56 Constitutional: Negative for fever, chills, and weight loss, Eyes: Negative for injury, kdr pain, redness, and discharge, ENT: Negative for injury, pain, and discharge, Neck: Negative for injury, pain, and swelling, Cardiovascular: Negative for chest pain, palpitations, and edema, Respiratory: Negative for shortness of breath, cough, wheezing, and pleuritic chest pain, Back: Negative for injury and pain, : Negative for injury, bleeding, discharge, and swelling, MS/Extremity: Negative for injury and deformity, Skin: Negative for injury, rash, and discoloration, Neuro: Negative for headache, weakness, numbness, tingling, and seizure activity. Psych: Negative for depression, anxiety, suicide ideation, homicidal ideation, and hallucinations, Allergy/Immunology: Negative for hives, rash, and allergies, Endocrine: Negative for neck swelling, polydipsia, polyuria, polyphagia, and marked weight changes, Hematologic/Lymphatic: Negative for swollen nodes, abnormal bleeding, and unusual bruising. Abdomen/GI: Positive for abdominal pain, nausea and vomiting, Negative for constipation, abdominal distension, black/tarry stool, rectal pain, rectal bleeding, bowel incontinence. Exam: 07:56 Constitutional: This is a well developed, well nourished patient who is awake, alert, kdr and in no acute distress. Head/Face: Normocephalic, atraumatic. Eyes: Pupils equal round and reactive to light, extra-ocular motions intact. Lids and lashes normal. Conjunctiva and sclera are non-icteric and not injected. Cornea within normal limits. Periorbital areas with no swelling, redness, or edema. Neck: Trachea midline, no thyromegaly or masses palpated, and no cervical lymphadenopathy. Supple, full range of motion without nuchal rigidity, or vertebral point tenderness. No Meningismus. Chest/axilla: Normal chest wall appearance and motion. Nontender with no deformity. No lesions are appreciated. Cardiovascular: Regular rate and rhythm with a normal S1 and S2. No gallops, murmurs, or rubs. Normal PMI, no JVD. No pulse deficits. Respiratory: Lungs have equal breath sounds bilaterally, clear to auscultation and percussion. No rales, rhonchi or wheezes noted. No increased work of breathing, no retractions or nasal flaring. Back: No spinal tenderness. No costovertebral tenderness. Full range of motion. Skin: Warm, dry with normal turgor. Normal color with no rashes, no lesions, and no evidence of cellulitis. MS/ Extremity: Pulses equal, no cyanosis. Neurovascular intact. Full, normal range of motion. Neuro: Awake and alert, GCS 15, oriented to person, place, time, and situation. Cranial nerves II-XII grossly intact. Motor strength 5/5 in all extremities. Sensory grossly intact. Cerebellar exam normal. Normal gait. Psych: Awake, alert, with orientation to person, place and time. Behavior, mood, and affect are within normal limits. 07:56 Abdomen/GI: Inspection: abdomen appears normal, Bowel sounds: active, diminished, in all quadrants, Palpation: soft, mild abdominal tenderness, in the epigastric area, right upper quadrant and left upper quadrant, rebound tenderness, is not appreciated, voluntary guarding, is not appreciated, involuntary guarding, is not appreciated. Vital Signs: 10/11 13:05 BP 148 / 106; Pulse 109; Resp 18 S; Temp 98.1(O); Pulse Ox 98% on R/A; Weight 68.04 kg ca1 (R); Height 5 ft. 6 in. (167.64 cm) (R); Pain 10/10; 13:50 BP 163 / 112; Pulse 105; Resp 18; Pulse Ox 98% on R/A; tw2 14:26 Pain 7/10; tw2 14:27 BP 158 / 94; Pulse 104; Resp 17; Pulse Ox 99% on R/A; tw2 15:29 BP 175 / 104; Pulse 105; Resp 18; Pulse Ox 98% on R/A; Pain 9/10; tw2 16:30 BP 148 / 97; Pulse 108; Resp 17; Temp 98.7(O); Pulse Ox 99% on R/A; tw2 16:46 Pain 7/10; tw2 17:30 BP 117 / 95; Pulse 101; Resp 17; Pulse Ox 97% on R/A; tw2 13:05 Body Mass Index 24.21 (68.04 kg, 167.64 cm) ca1 MDM: 16:26 Patient medically screened. kdr 10/12 07:56 Data reviewed: vital signs, nurses notes, lab test result(s), radiologic studies. kdr Counseling: I had a detailed discussion with the patient and/or guardian regarding: the historical points, exam findings, and any diagnostic results supporting the discharge/admit diagnosis, lab results, radiology results, the need for further work-up and treatment in the hospital. 10/11 13:37 Order name: Basic Metabolic Panel; Complete Time: 15:31 kdr 10/11 13:37 Order name: CBC with Diff; Complete Time: 15:31 kdr 10/11 13:37 Order name: Hepatic Function; Complete Time: 15:31 kdr 10/11 13:37 Order name: Lipase; Complete Time: 15:31 kdr 10/11 14:09 Order name: Manual Differential; Complete Time: 15:31 EDMS 10/11 14:09 Order name: CREATININE WHOLE BLOOD; Complete Time: 15:31 EDMS 10/11 13:38 Order name: CT Abd/Pelvis - IV Contrast Only; Complete Time: 15:31 kdr 10/11 16:27 Order name: ETOH Level kdr 10/11 17:01 Order name: Urine Dipstick--Ancillary (enter results) bd 10/11 13:37 Order name: IV Saline Lock; Complete Time: 13:50 kdr 10/11 13:37 Order name: Labs collected and sent; Complete Time: 13:50 kdr Administered Medications: 10/11 13:43 Drug: NS 0.9% 1000 ml Route: IV; Rate: 1 bolus; Site: right antecubital; tw2 15:00 Follow up: Response: No adverse reaction; IV Status: Completed infusion; IV Intake: tw2 1000ml 13:43 Drug: Zofran (Ondansetron) 4 mg Route: IVP; Site: right antecubital; tw2 14:26 Follow up: Response: No adverse reaction; Nausea is decreased tw2 13:45 Drug: morphine 4 mg Route: IVP; Site: right antecubital; tw2 14:26 Follow up: Pain 7/10 Adult; Response: No adverse reaction; Pain is decreased; RASS: tw2 Alert and Calm (0) 15:35 Drug: morphine 4 mg Route: IVP; Site: right antecubital; tw2 16:46 Follow up: Pain 7/10 Adult; Response: No adverse reaction; Pain is decreased tw2 15:46 Drug: GI Cocktail without - (Maalox Suspension 30 ml, Lidocaine Liquid 2 % 15 tw2 ml) Route: PO; 17:09 Follow up: Response: No adverse reaction tw2 15:46 Drug: NS 0.9% 1000 ml Route: IV; Rate: 1 bolus; Site: right antecubital; tw2 17:00 Follow up: IV Status: Completed infusion; IV Intake: 1000ml tw2 17:06 Drug: Valium 5 mg Route: IVP; Site: right antecubital; tw2 17:42 Follow up: Response: No adverse reaction; Pain is decreased tw2 17:08 Drug: Banana Bag - (NS 0.9% 1000 ml, foLIC Acid 1 mg, Thiamine 100 mg, Multivitamin 1 tw2 amp) Route: IV; Rate: calculated rate; Site: right antecubital; 17:43 Follow up: IV Status: Infusion continued upon admission tw2 Disposition: 10/12/19 16:26 Hospitalization ordered by Prince Piotr for Observation. Preliminary diagnosis is Abdominal and pelvic pain. - Bed requested for Telemetry/MedSurg (observation). - Status is Observation. jr10 - Condition is Fair. - Problem is an acute exacerbation. - Symptoms have improved. Signatures: Dispatcher [employer] EDMS Kacie Felder RN RN kl Rj Madrigal MD MD kdr Monique Pena RN RN tw2 Taylor Ortega RN RN ca1 Emili aPrker RN RN jr10 Corrections: (The following items were deleted from the chart) 13:20 13:08 Allergies: No Known Allergies; ca1 ca1 17:27 16:26 Hospitalization Ordered by Prince Piotr SIMPSON for Observation. Preliminary kl diagnosis is Abdominal and pelvic pain. Bed requested for Telemetry/MedSurg (observation). Status is Observation. Condition is Fair. Problem is an acute exacerbation. Symptoms have improved. kdr 18:12 17:27 10/12/2019 16:26 Hospitalization Ordered by Prince Piotr SIMPSON for Observation. jr10 Preliminary diagnosis is Abdominal and pelvic pain. Bed requested for Telemetry/MedSurg (observation). Status is Observation. Condition is Fair. Problem is an acute exacerbation. Symptoms have improved. kl
[2019-10-12] MEDS ORDERED: DIAZEPAM 10 MG/2 ML INJ SYRINGE ONE (16:51)
[2019-10-12] MEDS ORDERED: FOLIC ACID 1 MG, MULTIVITAMINS INJ 10 ML, THIAMINE HCL 100 MG in NA CHLORIDE 0.9% 1,000 ML IV ONE (17:00)
--- NOTE | 2019-10-12 17:16 | P.HP ---
Certification for Inpatient Patient admitted to: Observation With expected LOS: <2 Midnights Practitioner: I am a practitioner with admitting privileges, knowledge of patient current condition, hospital course, and medical plan of care. Services: Services provided to patient in accordance with Admission requirements found in Title 42 Section 412.3 of the Code of Federal Regulations Patient History Date of Service: 10/12/19 Reason for admission: ACUTE ABDOMINAL PAIN History of Present Illness: Patient is a 49-year-old [place] male with a past medical history of intermittent asthma, anxiety disorder and hypertriglyceridemia-induced pancreatitis 7 years ago. He present to the ER complaining of an acute onset of abdominal pain. He reports a sudden onset of epigastric abdominal pain which started within 24 hr of presentation. Since then he has been having multiple nonbloody emesis and watery diarrhea. Patient denies any GI bleeding. He denies ongoing use of NSAIDs. The also denies history of chronic excessive alcohol consumption. His father of liver complications. 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 Denies any recent travelling, change in meal or new restaurants. Allergies No Known Allergies Allergy (Verified 12/04/13 05:13) Home Medications: Albuterol Inhaler [Ventolin Inhaler*] 2 puff IH PRN PRN 06/04/18 Budesonide/Formoterol Fumarate [Symbicort 160-4.5 Mcg Inhaler] 2 puff IH BID 06/04/18 Sulfamethoxazole/Trimethoprim [Bactrim Ds Tablet] 1 each PO BID #20 tablet 06/05/18 traMADol HCL [Ultram*] 50 mg PO Q6H PRN #30 tab 06/05/18 - Past Medical/Surgical History Diabetic: No -: Asthma -: Pancreatitis - Family History Mother -: Cancer Notes: Stomach cancer Brother -: Heart disease Father -: Liver disease - Social History Alcohol use: Yes CD- Drugs: No Caffeine use: Yes Physical Examination - Physical Exam General: Moderate distress HEENT: Atraumatic, Normocephalic, PERRLA, EOMI Neck: Supple Respiratory: Clear to auscultation bilaterally, Normal air movement Cardiovascular: No edema, Regular rate/rhythm, Normal S1 S2, Other (tachycardic) Gastrointestinal: Normal bowel sounds, Other (mild distention), Tenderness, Guarding Musculoskeletal: No clubbing, No swelling, No contractures, No erythema, No tenderness, No warmth Neurological: Normal speech, Sensation intact, Normal affect - Studies Laboratory Data (last 24 hrs) 10/12/19 13:40: WBC 9.5, Hgb 13.2 L, Hct 38.3 L, Plt Count 318 10/12/19 13:40: Sodium 141, Potassium 4.0, BUN 14, Creatinine 0.96, Glucose 84, Total Bilirubin 0.4, AST 73 H, ALT 109 H, Alkaline Phosphatase 99, Lipase 230 Assessment and Plan - Problems (Diagnosis) (1) Abdominal pain Current Visit: Yes Status: Acute (2) Chronic pancreatitis Current Visit: Yes Status: Acute (3) Intermittent asthma Current Visit: Yes Status: Acute (4) Anxiety Current Visit: Yes Status: Acute - Plan Assessment Patient is a 49 year old [place] male currently admitted with an acute onset of epigastric abdominal. Work up so far has included basic labs and abdominal CT all failed to explain his presentation. Abdominal pain Hx of triglyceridemia-induced pancreatitis Intermittent asthma Anxiety PLAN Admit under observation Volume repletion Start a cocktail of anti-emetics, acid suppression therapy Pain control Follow up urine drug screen Anticipate discharge tomorrow - Advance Directives Does patient have a Living Will: No Does patient have a Durable POA for Healthcare: No
[2019-10-12 17:54] LABS: Urine Blood NEGATIVE (NEG); Urine Glucose NEGATIVE (NEG); Urine Protein NEGATIVE (NEG); Urine Specific Gravity 1.015 (1.005-1.030); Urine pH 6.5 (5.0-7.0)
[2019-10-12] MEDS ORDERED: HYDROMORPHONE HCL 1 MG/ML INJ IV PRN (17:58)
[2019-10-12] MEDS: CYCLOBENZAPRINE 10 MG TAB PO SCH ×4 (17:58→21:13)
[2019-10-12] MEDS ORDERED: MAGNES/ALUMIN/SIMET 30ML UCUP PO PRN (17:58)
[2019-10-12] MEDS ORDERED: ONDANSETRON 4 MG/2 ML VIAL IV PRN (17:58)
[2019-10-12] MEDS ORDERED: SODIUM CHLORIDE 0.9% 10ML INJ IV PRN (17:58)
[2019-10-12 18:38] VITALS: BMI 24.0
[2019-10-12] MEDS: D5 0.45 NS 1,000 ML IV SCH (18:51)
[2019-10-12] MEDS: PANTOPRAZOLE 40 MG INJ IVP SCH (18:51)
[2019-10-12 21:13] LABS: Barbiturates NEGATIVE (NEGATIVE); Benzodiazepines NEGATIVE (NEGATIVE); Cocaine NEGATIVE (NEGATIVE); METHAMPHETAM NEGATIVE (NEGATIVE); Methadone NEGATIVE (NEGATIVE); Opiates POSITIVE (NEGATIVE); Phencyclidine NEGATIVE (NEGATIVE); THC Cannibis NEGATIVE (NEGATIVE)
[2019-10-12] MEDS ORDERED: DIPHENHYDRAMINE 50 MG/ML VIAL IV PRN (22:37)
[2019-10-12] MEDS ORDERED: DIPHENHYDRAMINE 50 MG/ML VIAL IV ONE (23:56)
[2019-10-13] MEDS: D5 0.45 NS 1,000 ML IV SCH ×2 (02:00→10:41)
[2019-10-13] MEDS: FENTANYL CITR 100 MCG/2 ML IV PRN ×3 (03:36→13:18)
[2019-10-13] MEDS: DIPHENHYDRAMINE 50 MG/ML VIAL IV PRN ×2 (03:36→10:37)
[2019-10-13] MEDS ORDERED: ALBUTEROL INHALER 60 PUFF/8 GM IH PRN (08:39)
[2019-10-13] MEDS: PANTOPRAZOLE 40 MG INJ IVP SCH (08:46)
[2019-10-13] MEDS: CYCLOBENZAPRINE 10 MG TAB PO SCH ×2 (08:47→13:08)
[2019-10-13] MEDS ORDERED: DIVALPROEX DR 500MG TAB PO SCH (09:00)
[2019-10-13 11:13] VITALS: O2SAT 98
[2019-10-13] MEDS ORDERED: HYDRALAZINE HCL 20 MG/ML VIAL IV PRN (12:34)
[2019-10-13] MEDS ORDERED: AMLODIPINE 10 MG TAB PO SCH (12:35)
--- NOTE | 2019-10-13 14:40 | P.DS ---
Admission Date: 10/12/19 Discharge Date: 10/13/19 Disposition: ROUTINE DISCHARGE Discharge Condition: GOOD Reason for Admission: ACUTE ABDOMINAL PAIN - Problems (1) Abdominal pain Current Visit: Yes Status: Acute (2) Chronic pancreatitis Current Visit: Yes Status: Acute (3) Intermittent asthma Current Visit: Yes Status: Acute (4) Anxiety Current Visit: Yes Status: Acute Brief History of Present Illness: Patient is a 49-year-old Edu male with a past medical history of intermittent asthma, anxiety disorder and hypertriglyceridemia-induced pancreatitis 7 years ago. He present to the ER complaining of an acute onset of abdominal pain. He reports a sudden onset of epigastric abdominal pain which started within 24 hr of presentation. Since then he has been having multiple nonbloody emesis and watery diarrhea. Patient denies any GI bleeding. He denies ongoing use of NSAIDs. The also denies history of chronic excessive alcohol consumption. His father of liver complications. 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 Denies any recent travelling, change in meal or new restaurants. Hospital Course: Patient was placed on supportive care with IVF infusion, pain medications and anti-emetics. His diet was slowly advanced and he tolerated well. He can be discharged and follow up with his PCP. I will send him on [facility] due to high BP. Vital Signs/Physical Exam: Temp Pulse Resp BP Pulse Ox 97.0 F 91 H 17 172/94 H 97 10/13/19 12:00 10/13/19 13:10/13/19 12:00 10/13/19 13:10/13/19 12:00 General: In no apparent distress, Cooperative HEENT: Atraumatic, Normocephalic, EOMI Neck: Supple Respiratory: Clear to auscultation bilaterally, Normal air movement Cardiovascular: Normal pulses, Regular rate/rhythm, Normal S1 S2 Gastrointestinal: Normal bowel sounds, Soft and benign, Non-distended, No tenderness Musculoskeletal: No clubbing, No swelling, No contractures, No erythema, No tenderness, No warmth Integumentary: No rashes, No breakdown, No significant lesion, No tenderness/swelling, No erythema, No warmth, No cyanosis Neurological: Normal speech, Sensation intact, Normal affect Laboratory Data at Discharge: WBC 9.5 K/uL (4.3-10.9) 10/12/19 13:40 Hgb 13.2 g/dL (13.6-17.9) L 10/12/19 13:40 Hct 38.3 % (39.6-49.0) L 10/12/19 13:40 Plt Count 318 K/uL (152-406) 10/12/19 13:40 Sodium 141 mmol/L (136-145) 10/12/19 13:40 Potassium 4.0 mmol/L (3.5-5.1) 10/12/19 13:40 BUN 14 mg/dL (7-18) 10/12/19 13:40 Creatinine 0.96 mg/dL (0.55-1.3) 10/12/19 13:40 Glucose 84 mg/dL (74-106) 10/12/19 13:40 Total Bilirubin 0.4 mg/dL (0.2-1.0) 10/12/19 13:40 AST 73 U/L (15-37) H 10/12/19 13:40 ALT 109 U/L (12-78) H 10/12/19 13:40 Alkaline Phosphatase 99 U/L (45-117) 10/12/19 13:40 Triglycerides 315 mg/dL (<150) H 10/13/19 03:46 Cholesterol 223 mg/dL (<200) H 10/13/19 03:46 HDL Cholesterol 48 mg/dL (40-60) 10/13/19 03:46 Cholesterol/HDL Ratio 4.65 10/13/19 03:46 Lipase 230 U/L (73-393) 10/12/19 13:40 Home Medications: Albuterol 108 Mcg 1 puff IH PRN PRN 10/12/19 Divalproex Sodium [Depakote] 500 mg PO BID 10/12/19 Quetiapine Fumarate [Seroquel] 100 mg PO BEDTIME 10/12/19 Amlodipine [Norvasc*] 10 mg PO DAILY #30 tab 10/13/19 Cyclobenzaprine [Flexeril*] 10 mg PO TID #21 tab 10/13/19 Pantoprazole Sodium [Protonix] 40 mg PO DAILY #30 tablet. 10/13/19 New Medications: Cyclobenzaprine [Flexeril*] 10 mg PO TID #21 tab Amlodipine [Norvasc*] 10 mg PO DAILY #30 tab Pantoprazole Sodium [Protonix] 40 mg PO DAILY #30 tablet.
[2019-10-13 15:44] VITALS: BP 140/90
[2019-10-13 17:28] VITALS: TEMP 98.2
[2019-10-13] MEDS ORDERED: QUETIAPINE 100MG TAB PO SCH (21:00)
== END 2019-10-13 16:15 | disposition home or self-care (01) ==
LOC: ER 12:20 → ERHOLD 17:05 → 2ND 17:59
PROVIDERS: ADMIT Internal Medicine; ATTEND Internal Medicine
DX: R10.13 Epigastric pain (principal); K86.1 Other chronic pancreatitis; R11.2 Nausea with vomiting, unspecified; J45.20 Mild intermittent asthma, uncomplicated; F41.9 Anxiety disorder, unspecified; Z20.828 Contact with and (suspected) exposure to other viral communicable diseases; Z88.6 Allergy status to analgesic agent; Z80.0 Family history of malignant neoplasm of digestive organs; Z83.79 Family history of other diseases of the digestive system; Z82.49 Family history of ischemic heart disease and other diseases of the circulatory system; R11.0 Nausea
CPT/HCPCS: 36415; 74177; 80048; 80061; 80076; 80307; 80320; 81003; 82565; 83690; 85025; 96361; 96365; 96375; 99285; C9113; G0378; J1170; J1200; J2405; J3010; J3360; J3411; J7030; J7799; Q9967; U0002

== ENCOUNTER 2020-03-25 18:40 | Emergency (ER) | payer SELFPAY ==
--- OUTSIDE RECORDS SUMMARY | 2020-03-25 18:41 | XMS REPORT | Continuity of Care Document ---
:1970 Author Organization [facility] t Address [address] [place] [address] Care Team Providers Name Role Phone Romario [...] ID 2018-10-27 2018-10-27 Office DEV Whitley [id number] 13 15:47:24 16:02:24 Visit [facility] [id number] Surgical [id number] Specialti [phone] [address] 2018-10-27 2018-10-27 Letter DEV Whitley [id number] 15 00:00:00 00:00:00 (Out) [facility] [id number] Surgical [id number] Specialti [phone] [address] Results This patient has no known results.
[2020-03-25 19:55] LABS: Absolute Lymphocytes (CBC) 0.7 K/uL (0.7-4.9); Basophils % 0.8 % (0-1.3); Hematocrit 37.2 % (39.6-49.0); Lymphocytes % 11.2 % (15.3-44.8); MPV 8.9 fL (7.6-11.3); RBC Red Blood Cell Count 4.58 M/uL (4.33-5.43)
[2020-03-25 20:06] LABS: Protime INR 0.88
[2020-03-25 20:16] LABS: ALT/SGPT 64 U/L (12-78); AST/SGOT 52 U/L (15-37); Albumin 3.8 g/dL (3.4-5.0); Alkaline Phosphatase 74 U/L (45-117); BUN Blood Urea Nitrogen 11 mg/dL (7-18); Bicarbonate 23 mmol/L (21-32); Bilirubin Direct < 0.1 mg/dL (0-0.2); Bilirubin Total 0.2 mg/dL (0.2-1.0); C-Reactive Protein 3.67 mg/L (<3.00); Glucose Level 101 mg/dL (74-106); Lipase 88 U/L (73-393); Potassium 3.2 mmol/L (3.5-5.1); Protein, Total 8.1 g/dL (6.4-8.2); Sodium Level 141 mmol/L (136-145); Troponin (Emerg Dept Use Only) < 0.02 ng/mL (0.0-0.045)
--- NOTE | 2020-03-25 20:22 | RAD REPORT ---
EXAM DESCRIPTION: RAD - Chest Single View - 03/25/2020 7:48 pm CLINICAL HISTORY: DYSPNEA COMPARISON: Portable November 2013 TECHNIQUE: AP portable chest image was obtained 03/25/2020 7:48 pm . FINDINGS: No focal mass or consolidation. Interstitial pattern is not clearly different from compari son. Baseline prominence could mask minimal edema or infiltrate. No significant failure or volume ove rload seen. Heart and vasculature are normal. No measurable pleural effusion and no pneumothorax. No acute bony abnormality seen. No acute aortic findings suspected. IMPRESSION: No focal mass or consolidation. Baseline interstitial pattern could mask early edema or infiltrate.
[2020-03-25] MEDS ORDERED: AMLODIPINE 10 MG TAB ONE (20:56)
[2020-03-25 21:09] LABS: SARS-COV-2 RT PCR POSITIVE (NEGATIVE)
--- NOTE | 2020-03-25 21:18 | ER ---
Nurse's Notes [facility] Name: Ned Melgar Age: 50 yrs Sex: Male : 1970 Arrival Date: 03/25/2020 Time: 18:44 Bed 7 Private MD: Diagnosis: Coronavirus infection, unspecified;Essential (primary) hypertension Presentation: 03/25 18:52 Chief complaint: Patient states: DEMPSEY for 2 days. Cough, SOB, fever for 1 day. Fever 102 ll1 at home. Diarrhea earlier today. Coronavirus screen: Client denies travel out of the [place] in the last 14 days. cough unrelated to allergies, difficulty breathing, fatigue, fever, headache, Client presents with at least one sign or symptom that may indicate coronavirus-19. Standard/surgical mask placed on the client. Ebola Screen: Patient denies travel to an Ebola-affected area in the 21 days before illness onset. Initial Sepsis Screen: Does the patient meet any 2 criteria? RR > 20 per min. HR > 90 bpm. Yes Does the patient have a suspected source of infection? Yes: Productive cough/pneumonia. Risk Assessment: Do you want to hurt yourself or someone else? Patient reports no desire to harm self or others. Onset of symptoms was March 24, 2020. 18:52 Method Of Arrival: Ambulatory ll1 18:52 Acuity: NGUYỄN 2 ll1 Historical: - Allergies: 18:52 Codeine; ll1 - PMHx: 18:52 Anxiety; Asthma; High Cholesterol; Hypertension; ll1 - PSHx: 18:52 Knee surgery; ll1 - Immunization history:: Flu vaccine is not up to date. - Social history:: Smoking status: Patient reports the use of cigarette tobacco products, denies chronic smoking, but will smoke occasionally. Screenin:44 Abuse screen: Denies threats or abuse. Denies injuries from another. Nutritional mg2 screening: No deficits noted. Tuberculosis screening: No symptoms or risk factors identified. Fall Risk IV access (20 points). Assessment: 19:43 General: Appears in no apparent distress. comfortable, Behavior is calm, cooperative. mg2 Pain: Denies pain. Neuro: Level of Consciousness is awake, alert, obeys commands, Oriented to person, place, time, situation. Cardiovascular: Rhythm is sinus tachycardia. Respiratory: Reports shortness of breath at rest cough that is Airway is patent Respiratory effort is even, unlabored, Respiratory pattern is regular, symmetrical, GI: No signs and/or symptoms were reported involving the gastrointestinal system. : No signs and/or symptoms were reported regarding the genitourinary system. EENT: No signs and/or symptoms were reported regarding the EENT system. Derm: Skin is intact, is healthy with good turgor, Skin is pink, warm \T\ dry. normal. Musculoskeletal: Circulation, motion, and sensation intact. Capillary refill < 3 seconds. 21:08 Reassessment: Patient appears in no apparent distress at this time. Patient and/or mg2 family updated on plan of care and expected duration. Pain level reassessed. Patient is alert, oriented x 3, equal unlabored respirations, skin warm/dry/pink. 21:32 Reassessment: Patient appears in no apparent distress at this time. Patient is alert, rr5 oriented x 3, equal unlabored respirations, skin warm/dry/pink. discharge instruction given and explained without complaints made. Vital Signs: 18:52 BP 214 / 107; Pulse 130; Resp 22; Temp 99.1; Pulse Ox 97% ; Weight 72.57 kg; Height 5 ll1 ft. 6 in. (167.64 cm); Pain 3/10; 19:44 BP 163 / 111; Pulse 118; Resp 22; Temp 98.8; Pulse Ox 100% on R/A; mg2 20:13 BP 154 / 104; Pulse 106; Resp 21; Pulse Ox 99% ; rr5 21:08 BP 195 / 93; Pulse 65; Resp 20; Pulse Ox 100% on R/A; mg2 21:31 BP 150 / 97; Pulse 66; Resp 19; Pulse Ox 99% ; rr5 18:52 Body Mass Index 25.82 (72.57 kg, 167.64 cm) ll1 ED Course: 18:44 Patient arrived in ED. rg4 18:52 Arm band placed on. ll1 18:53 Triage completed. ll1 18:56 Leslie Ohara FNP-C is [facility]. kb 18:56 Tran Pedroza MD is Attending Physician. kb 19:04 Hattie Montana, RN is Primary Nurse. hb 19:15 Inserted saline lock: 20 gauge in right antecubital area, using aseptic technique. mg2 Blood collected. 19:42 Primary Nurse role handed off by Hattie Montana RN mw2 19:44 Patient has correct armband on for positive identification. hall monitor on. Pulse mg2 ox on. NIBP on. 19:44 No provider procedures requiring assistance completed. mg2 19:48 CXR XRAY In Process Unspecified. EDMS 20:12 Willi Elizabeth, RN is Primary Nurse. rr5 21:32 IV discontinued, intact, bleeding controlled, No redness/swelling at site. Pressure rr5 dressing applied. Administered Medications: 20:45 Drug: amLODIPine 10 mg Route: PO; rr5 21:32 Follow up: Response: No adverse reaction; Blood pressure is lowered rr5 Outcome: 21:17 Discharge ordered by . kb 21:32 Discharged to home ambulatory. rr5 21:32 Condition: stable 21:32 Discharge instructions given to patient, Instructed on discharge instructions, follow up and referral plans. medication usage, Demonstrated understanding of instructions, follow-up care, medications, Prescriptions given X 3. 21:33 Patient left the ED. rr5 Signatures: Dispatcher [employer] EDMT Leslie Ohara, PATIENT TRANSPORTER-C PATIENT TRANSPORTER-Ckb Hattie Montana, RN RN Ameena Otero rg4 Jose Ledezma mw2 Edmar Moyer RN RN mg2 Willi Elizabeth, RN RN rr5 Cassius Felder RN RN ll1 Corrections: (The following items were deleted from the chart) 19:10 18:52 Initial Sepsis Screen: Does the patient meet any 2 criteria? HR > 90 bpm. No. ll1 Patient's initial sepsis screen is negative. Does the patient have a suspected source of infection? Yes: Productive cough/pneumonia ll1
--- NOTE | 2020-03-25 21:18 | EDPHYS ---
Physician Documentation [facility] Name: Ned Melgar Age: 50 yrs Sex: Male : 1970 Arrival Date: 03/25/2020 Time: 18:44 Bed 7 Private MD: ED Physician Tran Pedroza HPI: 03/25 21:31 This 50 yrs old Male presents to ER via Ambulatory with complaints of Fever, Breathing kb Difficulty. 21:31 The patient has not experienced similar symptoms in the past. The patient has not kb recently seen a physician. Pt recently exposed to covid. Pt reports history of hypertension, but hasn't taken his prescribed medication in a few months due to cost. Unknown htn medication. 21:32 The patient or guardian reports cough, that is intermittent, described as mild, with no kb sputum, difficulty breathing, flu symptoms. Onset: The symptoms/episode began/occurred yesterday. Severity of symptoms: At their worst the symptoms were moderate, in the emergency department the symptoms are unchanged. Modifying factors: The symptoms are alleviated by nothing, the symptoms are aggravated by nothing. Associated signs and symptoms: Pertinent positives: fever. Historical: - Allergies: 18:52 Codeine; ll1 - PMHx: 18:52 Anxiety; Asthma; High Cholesterol; Hypertension; ll1 - PSHx: 18:52 Knee surgery; ll1 - Immunization history:: Flu vaccine is not up to date. - Social history:: Smoking status: Patient reports the use of cigarette tobacco products, denies chronic smoking, but will smoke occasionally. ROS: 21:30 Cardiovascular: Negative for chest pain, palpitations, and edema, Abdomen/GI: Negative kb for abdominal pain, nausea, vomiting, diarrhea, and constipation, Back: Negative for injury and pain, MS/Extremity: Negative for injury and deformity, Skin: Negative for injury, rash, and discoloration. 21:30 Constitutional: Positive for body aches, chills, fatigue, fever, malaise, poor PO intake, Negative for weight loss. 21:30 Respiratory: Positive for cough, shortness of breath. 21:30 Neuro: Positive for headache. Exam: 21:30 Constitutional: This is a well developed, well nourished patient who is awake, alert, kb and in no acute distress. Head/Face: Normocephalic, atraumatic. Chest/axilla: Normal chest wall appearance and motion. Nontender with no deformity. No lesions are appreciated. Cardiovascular: Regular rate and rhythm with a normal S1 and S2. No gallops, murmurs, or rubs. Normal PMI, no JVD. No pulse deficits. Respiratory: Lungs have equal breath sounds bilaterally, clear to auscultation and percussion. No rales, rhonchi or wheezes noted. No increased work of breathing, no retractions or nasal flaring. Abdomen/GI: Soft, non-tender, with normal bowel sounds. No distension or tympany. No guarding or rebound. No evidence of tenderness throughout. Skin: Warm, dry with normal turgor. Normal color with no rashes, no lesions, and no evidence of cellulitis. MS/ Extremity: Pulses equal, no cyanosis. Neurovascular intact. Full, normal range of motion. Neuro: Awake and alert, GCS 15, oriented to person, place, time, and situation. Cranial nerves II-XII grossly intact. Motor strength 5/5 in all extremities. Sensory grossly intact. Cerebellar exam normal. Normal gait. Vital Signs: 18:52 BP 214 / 107; Pulse 130; Resp 22; Temp 99.1; Pulse Ox 97% ; Weight 72.57 kg; Height 5 ll1 ft. 6 in. (167.64 cm); Pain 3/10; 19:44 BP 163 / 111; Pulse 118; Resp 22; Temp 98.8; Pulse Ox 100% on R/A; mg2 20:13 BP 154 / 104; Pulse 106; Resp 21; Pulse Ox 99% ; rr5 21:08 BP 195 / 93; Pulse 65; Resp 20; Pulse Ox 100% on R/A; mg2 21:31 BP 150 / 97; Pulse 66; Resp 19; Pulse Ox 99% ; rr5 18:52 Body Mass Index 25.82 (72.57 kg, 167.64 cm) ll1 MDM: 18:56 Patient medically screened. kb 21:29 Data reviewed: vital signs, nurses notes. Data interpreted: Pulse oximetry: on room air kb is 100 %. Interpretation: normal. Counseling: I had a detailed discussion with the patient and/or guardian regarding: the historical points, exam findings, and any diagnostic results supporting the discharge/admit diagnosis, lab results, radiology results, the need for outpatient follow up, a family practitioner, to return to the emergency department if symptoms worsen or persist or if there are any questions or concerns that arise at home. ED course: previous admission note reviewed. Pt has been on amlodipine in the past, will resume at same dose as before.. 03/25 19:19 Order name: D-Dimer; Complete Time: 20:07 kb 03/25 19:19 Order name: Blood Culture Adult (2) kb 03/25 19:19 Order name: BMP; Complete Time: 20:19 kb 03/25 19:19 Order name: C-Reactive Protein; Complete Time: 20:19 kb 03/25 19:19 Order name: CBC with Diff; Complete Time: 19:56 kb 03/25 19:19 Order name: Ferritin; Complete Time: 20:19 kb 03/25 19:19 Order name: Lactate; Complete Time: 20:13 kb 03/25 19:19 Order name: LFT's; Complete Time: 20:19 kb 03/25 19:19 Order name: Lipase; Complete Time: 20:19 kb 03/25 19:19 Order name: Procalcitonin; Complete Time: 21:19 kb 03/25 19:19 Order name: PT-INR; Complete Time: 20:07 kb 03/25 19:19 Order name: Ptt, Activated; Complete Time: 20:07 kb 03/25 19:19 Order name: Troponin (emerg Dept Use Only); Complete Time: 20:19 kb 03/25 19:19 Order name: CXR XRAY; Complete Time: 20:25 kb 03/25 19:19 Order name: EKG; Complete Time: 19:20 kb 03/25 19:19 Order name: Cardiac monitoring; Complete Time: 19:42 kb 03/25 19:19 Order name: Droplet/Contact Precautions; Complete Time: 19:42 kb 03/25 19:19 Order name: EKG - Nurse/Tech; Complete Time: 19:42 kb 03/25 19:19 Order name: IV Start; Complete Time: 19:42 kb 03/25 19:19 Order name: Labs collected and sent; Complete Time: 19:42 kb 03/25 19:19 Order name: O2 Per Protocol; Complete Time: 19:42 kb 03/25 19:19 Order name: O2 Sat Monitoring; Complete Time: 19:42 kb 03/25 21:10 Order name: COVID-19/FLU A+B; Complete Time: 21:11 EDPA Administered Medications: 20:45 Drug: amLODIPine 10 mg Route: PO; rr5 21:32 Follow up: Response: No adverse reaction; Blood pressure is lowered rr5 Disposition: 03/26 20:08 Co-signature as Attending Physician, Tran Pedroza MD. ma2 Disposition: 03/25/20 21:17 Discharged to Home. Impression: Coronavirus infection, unspecified, Essential (primary) hypertension. - Condition is Stable. - Discharge Instructions: Hypertension, [id number]-[id number], Viral Respiratory Infection, [id number], COVID-19. - Prescriptions for Norvasc 10 mg Oral Tablet - take 1 tablet by ORAL route once daily; 30 tablet. Prednisone 20 mg Oral Tablet - take 2 tablet by ORAL route once daily for 5 days; 10 tablet. Albuterol Sulfate 90 mcg/actuation - inhale 1-2 puff by INHALATION route every 4-6 hours; 1 Inhaler. - Medication Reconciliation Form, Thank You Letter, Antibiotic Education, Prescription Opioid Use form. - Follow up: Emergency Department; When: As needed; Reason: Worsening of condition. Follow up: Private Physician; When: 2 - 3 days; Reason: Recheck today's complaints, Continuance of care, Re-evaluation by your physician. Signatures: Dispatcher [employer] [facility] Leslie Ohara, DIRECTOR OF HEALTHCARE SYSTEMS-C DIRECTOR OF HEALTHCARE SYSTEMS-Tran Do MD MD ma2 Willi Elizabeth RN RN rr5 Cassius Felder RN RN ll1 Corrections: (The following items were deleted from the chart) 03/25 20:16 18:58 CORONAVIRUS+MR.LAB.BRZ ordered. [facility] EDPA 20:17 18:58 Influenza Screen (A \T\ B)+BA.LAB.BRZ ordered. [facility] 21:33 21:17 03/25/2020 21:17 Discharged to Home. Impression: Coronavirus infection, rr5 unspecified; Essential (primary) hypertension. Condition is Stable. Forms are Medication Reconciliation Form, Thank You Letter, Antibiotic Education, Prescription Opioid Use. Follow up: Emergency Department; When: As needed; Reason: Worsening of condition. Follow up: Private Physician; When: 2 - 3 days; Reason: Recheck today's complaints, Continuance of care, Re-evaluation by your physician. kb
[2020-03-25 21:42] VITALS: TEMP 98.8
[2020-03-25 21:46] VITALS: BP 150/97; O2SAT 99
== END 2020-03-25 21:33 | disposition home or self-care (01) ==
LOC: ER 18:40
DX: U07.1 COVID-19 (principal); I10 Essential (primary) hypertension; F17.210 Nicotine dependence, cigarettes, uncomplicated; Z88.5 Allergy status to narcotic agent
CPT/HCPCS: 0240U; 36415; 71045; 80048; 80076; 82728; 83605; 83690; 84145; 84484; 85025; 85379; 85610; 85730; 86140; 87040; 93005; 99284

== ENCOUNTER 2020-12-04 09:28 | Emergency (ER) | payer SELFPAY ==
[2020-12-04 09:54] LABS: Absolute Lymphocytes (CBC) 1.1 K/uL (0.7-4.9); Basophils % 1.4 % (0-1.3); Hematocrit 35.8 % (39.6-49.0); Lymphocytes % 24.4 % (15.3-44.8); RBC Red Blood Cell Count 4.27 M/uL (4.33-5.43)
--- NOTE | 2020-12-04 09:59 | RAD REPORT ---
EXAM DESCRIPTION: RAD - Chest Single View - 12/04/2020 9:52 am CLINICAL HISTORY: COUGH COMPARISON: Portable March 2020 TECHNIQUE: AP portable chest image was obtained 12/04/2020 9:52 am . FINDINGS: Lungs are clear. Heart and vasculature are normal. No measurable pleural effusion and no p neumothorax. No acute bony abnormality seen. No acute aortic finding. Jewelry artifact overlies the l ateral lower aspect of each ribcage. IMPRESSION: No acute cardiopulmonary process. No significant change from comparison.
[2020-12-04 10:05] LABS: Protime INR 0.97
[2020-12-04] MEDS ORDERED: D5 0.45 NS 1,000 ML IV ONE (10:06)
[2020-12-04] MEDS ORDERED: NA CHLORIDE 0.9% 1,000 ML ONE (10:06)
--- NOTE | 2020-12-04 10:14 | RAD REPORT ---
EXAM DESCRIPTION: CT - Head Brain Wo Cont - 12/04/2020 9:57 am CLINICAL HISTORY: SLURRED SPEECH, transient alteration of awareness COMPARISON: Chest Single View dated 12/04/2020 TECHNIQUE: Axial 5 mm thick images of the head were obtained without IV contrast. All CT scans are performed using dose optimization technique as appropriate and may include automated exposure control or mA/KV adjustment according to patient size. FINDINGS: No intracranial hemorrhage, mass, edema or shift of mid-line structures. No acute infarcti on changes seen. No abnormal extra-axial fluid collections. Ventricles are normal. Physiologic calci fications are present. Mastoid air cells are clear. Ethmoid air cell mucosal thickening present. No acute bony findings. IMPRESSION: Negative non-contrast CT head examination for acute or emergent finding.
[2020-12-04 10:28] LABS: ALT/SGPT 119 U/L (12-78); Albumin 3.5 g/dL (3.4-5.0); Alkaline Phosphatase 115 U/L (45-117); BUN Blood Urea Nitrogen 17 mg/dL (7-18); Bicarbonate 20 mmol/L (21-32); Bilirubin Direct 0.2 mg/dL (0-0.2); Bilirubin Total 0.5 mg/dL (0.2-1.0); Glucose Level 140 mg/dL (74-106); NT PRO-BNP 41 pg/mL (<125); Sodium Level 141 mmol/L (136-145); Troponin (Emerg Dept Use Only) < 0.02 ng/mL (0.0-0.045)
[2020-12-04 10:31] LABS: Urine Blood Negative (Negative); Urine Glucose Negative (Negative); Urine Protein Negative (Negative); Urine Specific Gravity <=1.005 (1.005-1.030)
[2020-12-04 10:32] LABS: AST/SGOT 240 U/L (15-37); Magnesium 2.1 mg/dL (1.8-2.4); Potassium 3.3 mmol/L (3.5-5.1)
[2020-12-04] MEDS ORDERED: Magnesium Sulfate 2gm IVPB 2 G/50 ML BAG IV ONE (10:42)
[2020-12-04] MEDS ORDERED: FAMOTIDINE 20 MG/2 ML VIAL IV ONE (10:58)
--- NOTE | 2020-12-04 10:59 | ER ---
Nurse's Notes [facility] Name: Ned Melgar Age: 50 yrs Sex: Male : 1970 Arrival Date: 12/04/2020 Time: : Bed 19 Private MD: Diagnosis: Suicidal ideations;Suicide attempt;Adjustment disorder with anxiety;Major depressive disorder, recurrent, moderate;Cocaine abuse;Alcohol abuse with intoxication Presentation: 12/04 09:31 Chief complaint: Pt's called 911 around 827, pt was found unresponsive on couch aa5 next to empty bottle of Seroquel (Seroquel 200mg, bottle quantity 90 pills, filled on 11/02/2020), gallon of water, and beer bottle by law enforcement. Law enforcement states "he sent out a text to all his kids and his saying goodbye and then blocked them". Pt currently responsive to verbal stimuli, pt is drowsy. Onset of symptoms was December 04, 2020. 09:31 Acuity: NGUYỄN 2 aa5 : Method Of Arrival: EMS: [facility] aa5 09:31 Coronavirus screen: Unable to complete. Ebola Screen: Unable to complete the Ebola aa5 screening because:. Initial Sepsis Screen: Does the patient meet any 2 criteria? HR > 90 bpm. Does the patient have a suspected source of infection? No. Patient's initial sepsis screen is negative. Risk Assessment: Do you want to hurt yourself or someone else? Unable to obtain. Historical: - Allergies: 09:43 Codeine; aa5 - Home Meds: 09:43 Depakote Oral obtained from previous visit history [Active]; Seroquel 200 mg oral tab aa5 at bedtime [Active]; - PMHx: 09:43 Anxiety; Asthma; High Cholesterol; Hypertension; History obtained from previous ER aa5 visit (unable to obtain updated history at this time); - Family history:: not pertinent. - Social history:: Smoking status: Patient/guardian denies using. Screenin:22 Abuse screen: Denies threats or abuse. Denies injuries from another. Nutritional tc5 screening: No deficits noted. Tuberculosis screening: No symptoms or risk factors identified. Fall Risk Mental Status-. 10:47 Abuse screen: Intervention for positive screen: Pt denies HI. When asked why pt took tc5 all the pills, he replied, "i didn't take any pills" when asked pt if he wanted to go to sleep and not wake up he states"yes" then states "im not going to answer no more questions." Pt told Nurse Vicki WHITE, he was not going to take pills he was going to drive the motorcycle as fast as he can. Assessment: 09:36 Reassessment: Contacted poison control, spoke to [place], Case # [id number], aa5 recommendations are as follow: toxic work-up, EKG, continuous cardiac monitoring, observation time of at least 6 hours, seizure precautions, administer Ativan PRN for seizures, draw magnesium level and replace as needed. Poison control also stated possible agitation, dysrhythmias, seizures, QT prolongation, hypertension, and tachycardia. MD was notified of findings. . 10:20 General: Appears distressed, Behavior is drowsy. Pain: Denies pain. Neuro: No deficits tc5 noted. Cardiovascular: tachycardia [address] Respiratory: No deficits noted. GI: No deficits noted. Possible ingestion of 66 200mg quetiapine, pt denies taking pills. : No deficits noted. EENT: No deficits noted. 10:42 General: pt son here, states pt has been a daily hard liquor drinker for the past 6 tc5 months due to divorce. Pt son Troy Melgar [phone], .. 11:57 General: pt sleeping sound, awakes to loud verbal and touch. assisted pt to sitting tc5 position to drink K+. sitter remains at bedside, no needs at this time.. 12:16 General: pt scratching red areas to BUE, message sent to .. tc5 13:13 General: pt itching, topical cream order faxed to pharmacy.. tc5 14:13 General: [place] with [facility] at bedside.. tc5 15:07 General: 1440-[facility] poison control called for update on pt, update given.. General: Pt tc5 continues to rest, sitter remains at bedside. VSS, will cont to monitor.. 16:37 General: pt cont to rest, sitter at bedside, VSS, NAD.. tc5 17:05 General: pt cont to rest, awake to verbal, pt provided a sandwich per request, sitter tc5 remains at bedside. no other needs expressed.. 18:02 General: pt cont to rest, wakes intermittently, and to verbal, then goes back to sleep. tc5 NAD, Sitter remains at bedside, will cont to monitor. . 19:09 General: reports to fany white care of pt transferred.. tc5 12/05 07:36 Reassessment: Pt sleeping. es2 12/06 00:00 Reassessment: No changes from previously documented assessment. Patient and/or family df1 updated on plan of care and expected duration. Pain level reassessed. Patient is alert, oriented x 3, equal unlabored respirations, skin warm/dry/pink. Patient states feeling better. Patient states symptoms have improved. 08:09 Reassessment: Attempted to call [facility] with [facility] to see if she can assist with ss patient placement. No answer. Left VM. 12:29 Reassessment: Patient and/or family updated on plan of care and expected duration. Pain es2 level reassessed. Patient is alert, oriented x 3, equal unlabored respirations, skin warm/dry/pink. Patient denies pain at this time. General: Appears in no apparent distress. comfortable, Behavior is calm, cooperative, appropriate for age. Pain: Denies pain. Neuro: Level of Consciousness is awake, alert, obeys commands, Oriented to person, place, time, situation, Appropriate for age Gait is steady, Speech is normal. Cardiovascular: Capillary refill < 3 seconds Patient's skin is warm and dry. Respiratory: Airway is patent Respiratory effort is even, unlabored, Respiratory pattern is regular, symmetrical. GI: No signs and/or symptoms were reported involving the gastrointestinal system. : No signs and/or symptoms were reported regarding the genitourinary system. EENT: No signs and/or symptoms were reported regarding the EENT system. 12:31 Reassessment: Pt being calm and cooperative, awaiting facility placement. Son has es2 visited today and brought lunch. Pt tolerated well. No complaints at this time. 19:15 Reassessment: No changes from previously documented assessment. Patient and/or family df1 updated on plan of care and expected duration. Pain level reassessed. Patient states feeling better. Patient states symptoms have improved. 21:00 Reassessment: No changes from previously documented assessment. Patient and/or family df1 updated on plan of care and expected duration. Pain level reassessed. Patient is alert, oriented x 3, equal unlabored respirations, skin warm/dry/pink. Patient states feeling better. Patient states symptoms have improved. 12/07 05:00 Reassessment: No changes from previously documented assessment. Patient and/or family df1 updated on plan of care and expected duration. Pain level reassessed. Patient is alert, oriented x 3, equal unlabored respirations, skin warm/dry/pink. leg pain is better, pt just waiting on transport to [facility] Patient states feeling better. Patient states symptoms have improved. Overdose: 12/05 10:02 Randle Suicide Severity Screening: "In the past month, have you wished you were es2 or wished you could go to sleep and not wake up?" Patient responds "yes." "In the past month, have you actually had any thoughts of killing yourself?" Patient responds "yes." "In your lifetime, have you ever done anything, started to do anything, or prepared to do anything to end your life?" Patient responds "yes." Patient reports suicidal intent within 3 past months. 10:02 Randle Suicide Severity Screening: "In the past month, have you wished you were es2 or wished you could go to sleep and not wake up?" Patient responds "yes." Based off client's responses, additional C-SSRS screening questions required. 10:06 Randle Suicide Severity Screening: "In the past month, have you actually had any es2 thoughts of killing yourself?" Patient responds "yes." Based off client's responses, additional C-SSRS screening questions required. Vital Signs: 12/04 09:31 BP 137 / 96; Pulse 128; Resp 18 S; Pulse Ox 95% on R/A; aa5 09:58 BP 132 / 77; Pulse 129; Temp 96.1; Pulse Ox 96% ; Weight 72.57 kg; Height 5 ft. 6 in. tc5 (167.64 cm); Pain 0/10; 10:46 BP 130 / 83; Pulse 124; Resp 18; Pulse Ox 99% ; Weight 72.57 kg; Height 5 ft. 6 in. tc5 (167.64 cm); Pain 0/10; 11:56 BP 130 / 87; Pulse 131; Resp 20; Pulse Ox 99% ; tc5 12:38 BP 110 / 77; Pulse 109; Resp 16; Pulse Ox 97% ; tc5 13:12 BP 130 / 88; Pulse 113; Resp 18; Pulse Ox 94% ; tc5 14:13 BP 132 / 80; Pulse 109; Resp 16; Pulse Ox 98% ; Pain 0/10; tc5 15:09 BP 119 / 71; Pulse 109; Resp 16; Pulse Ox 96% ; tc5 16:38 BP 145 / 83; Pulse 108; Resp 18; Pulse Ox 98% ; tc5 17:01 BP 138 / 102; Pulse 117; Resp 17; Pulse Ox 98% ; tc5 18:04 BP 155 / 90; Pulse 110; Resp 16; Pulse Ox 97% ; tc5 19:00 BP 158 / 91; Pulse 115; Resp 20; Pulse Ox 99% on R/A; lh3 20:00 BP 155 / 94; Pulse 119; Resp 18; Pulse Ox 99% on R/A; lh3 21:00 BP 142 / 82; Pulse 117; Resp 18; Pulse Ox 98% on R/A; lh3 22:00 BP 164 / 92; Pulse 110; Resp 18; Pulse Ox 99% on R/A; lh3 23:00 BP 147 / 98; Pulse 103; Resp 18; Pulse Ox 99% on R/A; lh3 29 00:00 BP 159 / 99; Pulse 106; Resp 18; Pulse Ox 96% on R/A; lh3 01:19 BP 159 / 95; Pulse 106; Resp 18; Pulse Ox 99% on R/A; lh3 02:21 BP 164 / 95; Pulse 101; Resp 18; Pulse Ox 96% on R/A; lh3 08:16 BP 184 / 116; Pulse Ox 98% on R/A; es2 10:00 BP 174 / 105; Pulse 106; Resp 18; Pulse Ox 99% on R/A; es2 10:17 BP 157 / 98; Pulse 104; Resp 18; Pulse Ox 98% on R/A; es2 12:21 BP 147 / 91; Pulse 108; Resp 18; Pulse Ox 99% on R/A; es2 18:54 BP 151 / 89; Pulse 103; Resp 18; Pulse Ox 98% on R/A; es2 22:03 BP 168 / 99; Pulse 106; Resp 18; Pulse Ox 99% on R/A; bs2 23:00 BP 155 / 96; Pulse 101; Resp 18; Pulse Ox 98% ; bs2 12/06 00:00 BP 141 / 92; Pulse 101; Resp 17; Temp 97.8(A); Pulse Ox 100% ; Pain 4/10; bs2 02:00 BP 189 / 108; Pulse 111; Resp 16; Temp 98.4(O); Pulse Ox 96% ; Pain 4/10; bs2 04:00 BP 146 / 91 LA Supine (auto/reg); Pulse 97 MON; Resp 18 S; Temp 98.4(O); Pulse Ox 97% bs2 on R/A; Pain 0/10; 12:30 BP 172 / 112; Pulse 93; Resp 20; Pulse Ox 96% on R/A; es2 22:52 BP 173 / 101; Pulse 95; Resp 18; Pulse Ox 96% on R/A; kc4 12/07 00:30 BP 142 / 91; Pulse 83; Resp 16; Pulse Ox 100% ; df1 02:30 BP 159 / 95; Pulse 88; Resp 16; Pulse Ox 100% on R/A; df1 04:30 BP 159 / 109; Pulse 92; Resp 15; Pulse Ox 100% ; df1 05:30 BP 173 / 110; Pulse 96; Resp 15; Temp 99.0; Pulse Ox 100% ; Pain 3/10; df1 12/04 10:46 Body Mass Index 25.82 (72.57 kg, 167.64 cm) tc5 ED Course: 12/04 09:31 Patient arrived in ED. aa5 09:31 James Rich MD is Attending Physician. geovanni 09:31 Arm band placed on. aa5 09:34 Triage completed. aa5 09:52 XRAY Chest (1 view) In Process Unspecified. EDMS 09:54 Eva Wong, CINDY is Primary Nurse. tc5 09:57 CT Head Brain wo Cont In Process Unspecified. EDMS 10:22 residential monitor on. Pulse ox on. NIBP on. Sitter at bedside. Patient is placed in psych tc5 hold. 10:23 Inserted saline lock: 20 gauge in right forearm, using aseptic technique. tc5 11:30 faxed chart to [facility]. bd 15:00 spoke with Riccardo at [facility], chart is being reviewed and pt will be put on bd waiting list for a [facility] bed. 15:08 faxed chart to [facility]. 15:10 Depakote Sent. tc5 15:10 Basic Metabolic Panel Sent. tc5 15:11 CBC with Diff Sent. tc5 12/05 07:38 Patient has correct armband on for positive identification. Side rails up X2. es2 One-on-one care X 15 minutes. 09:01 Attending Physician role handed off by James Rich MD kdr 09:01 Rj Madrigal MD is Attending Physician. kdr 10:05 No provider procedures requiring assistance completed. IV is patent, with fluids es2 infusing freely. 10:09 spoke with Anahy at [facility], she states that the chart is still in review. bd 13:08 Alcohol Serum/Plasma Sent. es2 13:08 ETOH Level Sent. es2 12/06 04:01 Attending Physician role handed off by Rj Madrigal MD pkl 04:01 Saul Rubin MD is Attending Physician. pkl 10:48 refaxed patient chart to psych facilities. hi 12/07 04:00 Nurse to Nurse with Malinda from [facility]. Malinda is going to fax over mw2 a voluntary exclusionary form the patient has to fill out, then we can do doc to doc. 04:48 faxed over the voluntary exclusionary back to [facility]. mw2 04:51 paged the Doctor from [facility]. mw2 04:55 The resident from [facility] called she stated "I have to check my roster to see if I 2 have placement. I will call you back.". 05:[address] Pedroza with the Resident from [facility]. mw2 05:12 administrative approval given by Baljit Badillo/ patient has been accepted to [address]/ Dr. Amador accepted the patient in transfer. 05:49 IV discontinued, intact, bleeding controlled, No redness/swelling at site. df1 Administered Medications: 12/04 09:44 Drug: NS 0.9% 1000 ml Route: IV; Rate: 1 bolus; Site: right forearm; tc5 11:41 Follow up: IV Status: Completed infusion; IV Intake: 1000ml tc5 10:36 Drug: Pepcid (famotidine) 20 mg Route: IVP; Site: right forearm; tc5 11:42 Follow up: Response: No adverse reaction tc5 13:15 Follow up: Response: No adverse reaction tc5 10:37 Drug: Magnesium Sulfate 2 grams Route: IVPB; Infused Over: 2 hrs; Site: right forearm; tc5 12:17 Follow up: IV Status: Completed infusion tc5 13:15 Follow up: Response: No adverse reaction tc5 10:46 CANCELLED (Duplicate Order): Potassium Effervescent Tablet 25 mEq PO once; dissolve in geovanin 4 ounces of water or juice 11:41 Drug: Potassium Effervescent Tablet 50 mEq Route: PO; tc5 13:14 Follow up: Response: No adverse reaction tc5 11:42 Drug: D5-1/2 NS 1000 ml Route: IV; Rate: 150 ml/hr; Site: right forearm; tc5 21:59 Follow up: Response: No adverse reaction; IV Status: Completed infusion lh3 13:56 Drug: Topicort Cream 0.05 % 1 application {Note: applied to BUE..} Route: Topical; tc5 Site: affected area; 15:10 Follow up: Response: No adverse reaction tc5 12/05 09:06 Drug: Lisinopril 20 mg Route: PO; es2 09:37 Follow up: Response: No adverse reaction es2 09:09 Drug: NS 0.9% 1000 ml Route: IV; Rate: 1 bolus; Site: right forearm; es2 09:38 Follow up: Response: No adverse reaction es2 11:00 Follow up: IV Status: Completed infusion es2 21:21 CANCELLED (dosage changee): Depakote (divalproex) 100 mg PO once bs2 21:55 Drug: SEROquel (QUEtiapine) 200 mg Route: PO; bs2 12/06 02:39 Follow up: Response: No adverse reaction bs2 02:40 Follow up: Response: No adverse reaction bs2 12/05 21:55 Drug: Depakote (divalproex) 250 mg Route: PO; bs2 12/06 02:40 Follow up: Response: No adverse reaction bs2 12/05 22:01 Drug: Albuterol HFA Inhaler 2 puffs Route: Inhalation; bs2 12/06 02:39 Drug: Metoprolol TARTRATE 50 mg Route: PO; bs2 04:49 Follow up: Response: No adverse reaction bs2 02:39 Drug: Motrin (ibuprofen) 600 mg Route: PO; bs2 04:50 Follow up: Response: No adverse reaction bs2 11:50 Drug: Valproic Acid 250 mg Route: PO; es2 12:34 Follow up: Response: No adverse reaction es2 16:04 Drug: Motrin (ibuprofen) 600 mg Route: PO; es2 17:51 Follow up: Response: No adverse reaction es2 16:04 Drug: Lisinopril 20 mg Route: PO; es2 17:50 Follow up: Response: No adverse reaction es2 22:56 Drug: SEROquel (QUEtiapine) 200 mg Route: PO; bs2 22:56 Follow up: Response: No adverse reaction bs2 22:56 Not Given (can not locate in hospitall): Depakene (valproic acid) 250 mg PO once bs2 23:16 Drug: Metoprolol 50 mg Route: PO; bs2 12/07 02:39 Follow up: Response: No adverse reaction df1 12/06 23:33 Drug: Depakote (divalproex) 250 mg Route: PO; bs2 12/07 02:39 Follow up: Response: No adverse reaction df1 02:39 Drug: morphine 2 mg Route: IVP; Site: right forearm; df1 05:46 Follow up: Response: No adverse reaction df1 05:00 Drug: Dilaudid (HYDROmorphone) 1 mg Route: IVP; Site: right forearm; df1 05:46 Follow up: Response: No adverse reaction df1 05:47 Drug: Depakote (divalproex) 250 mg Route: PO; df1 05:49 Follow up: Response: No adverse reaction df1 Intake: 12/04 11:41 IV: 1000ml; Total: 1000ml. tc5 Output: 12/06 09:10 Urine: 760ml; Total: 760ml. es2 16:06 Urine: 1000ml (Voided); Total: 1760ml. es2 17:19 Urine: 500ml (Voided); Total: 2260ml. es2 Outcome: 12/04 10:59 ER care complete, transfer ordered by MD. galarza 12/07 04:01 Transferred Note: Nurse to Nurse given to Malinda at [place] [id number] 05:50 Transferred by ground EMS Transfer form completed. Note: [place] [id number] center 05:50 Condition: improved 05:50 Instructed on the need for transfer. 06:06 Patient left the ED. mw2 Signatures: Dispatcher [employer] EDMS Nasima Hamilton Corey, MD MD cha Lam, Pin, MD MD pkl Rittger, Kevin, MD MD kdr Calderon, Audri RN RN aa5 Ghislaine Del Real, RN RN [facility] Jose mw2 Reanna Mcbride RN RN bs2 Fany Davis RN RN 3 Jammie Jiang 4 Earlene Bonds df1 Latesha Mcbride RN RN es2 Eva Wong, RN RN tc5 Corrections: (The following items were deleted from the chart) 12/04 09:46 09:31 Chief complaint: Pt's called 911, pt was found unresponsive on couch next to aa5 empty bottle of Seroquel, gallon of water, and beer bottle by law enforcement. Law enforcement states "he sent out a text to all his kids and his saying goodbye and then blocked them". Pt currently responsive to verbal stimuli, pt is drowsy. aa5 12/05 01:19 00:00 BP 159 / 95; Pulse 106bpm; Resp 18bpm; Pulse Ox 96% RA; lh3 lh3
--- NOTE | 2020-12-04 10:59 | EDPHYS ---
Physician Documentation [facility] Name: eNd Melgar Age: 50 yrs Sex: Male : 1970 Arrival Date: 12/04/2020 Time: 09:31 Bed 19 Private MD: ED Physician Saul Rubin HPI: 12/04 09:38 This 50 yrs old Male presents to ER via EMS with complaints of Overdose. geovanni 09:38 The patient presents to the emergency department after a known overdose, that was geovanni intentional. Context: Method: seroquel. Associated signs and symptoms: The patient has no apparent associated signs or symptoms. Severity of symptoms: At their worst the symptoms were mild in the emergency department the symptoms are unchanged. The patient has not experienced similar symptoms in the past. Historical: - Allergies: :43 Codeine; aa5 - Home Meds: :43 Depakote Oral obtained from previous visit history [Active]; Seroquel 200 mg oral tab aa5 at bedtime [Active]; - PMHx: :43 Anxiety; Asthma; High Cholesterol; Hypertension; History obtained from previous ER aa5 visit (unable to obtain updated history at this time); - Family history:: not pertinent. - Social history:: Smoking status: Patient/guardian denies using. ROS: 09:44 Constitutional: Negative for fever, chills, and weight loss, Eyes: Negative for injury, geovanni pain, redness, and discharge, ENT: Negative for injury, pain, and discharge, Neck: Negative for injury, pain, and swelling, Cardiovascular: Negative for chest pain, palpitations, and edema, Respiratory: Negative for shortness of breath, cough, wheezing, and pleuritic chest pain, Abdomen/GI: Negative for abdominal pain, nausea, vomiting, diarrhea, and constipation, Back: Negative for injury and pain, : Negative for injury, bleeding, discharge, and swelling, MS/Extremity: Negative for injury and deformity, Skin: Negative for injury, rash, and discoloration, Psych: Negative for depression, anxiety, suicide ideation, homicidal ideation, and hallucinations, Allergy/Immunology: Negative for hives, rash, and allergies, Endocrine: Negative for neck swelling, polydipsia, polyuria, polyphagia, and marked weight changes, Hematologic/Lymphatic: Negative for swollen nodes, abnormal bleeding, and unusual bruising. 09:44 Neuro: Positive for altered mental status, weakness. Exam: 09:44 Constitutional: This is a well developed, well nourished patient who is awake, alert, geovanni and in no acute distress. Head/Face: Normocephalic, atraumatic. Eyes: Pupils equal round and reactive to light, extra-ocular motions intact. Lids and lashes normal. Conjunctiva and sclera are non-icteric and not injected. Cornea within normal limits. Periorbital areas with no swelling, redness, or edema. ENT: Nares patent. No nasal discharge, no septal abnormalities noted. Tympanic membranes are normal and external auditory canals are clear. Oropharynx with no redness, swelling, or masses, exudates, or evidence of obstruction, uvula midline. Mucous membranes moist. Neck: Trachea midline, no thyromegaly or masses palpated, and no cervical lymphadenopathy. Supple, full range of motion without nuchal rigidity, or vertebral point tenderness. No Meningismus. Chest/axilla: Normal chest wall appearance and motion. Nontender with no deformity. No lesions are appreciated. Cardiovascular: Regular rate and rhythm with a normal S1 and S2. No gallops, murmurs, or rubs. Normal PMI, no JVD. No pulse deficits. Respiratory: Lungs have equal breath sounds bilaterally, clear to auscultation and percussion. No rales, rhonchi or wheezes noted. No increased work of breathing, no retractions or nasal flaring. Abdomen/GI: Soft, non-tender, with normal bowel sounds. No distension or tympany. No guarding or rebound. No evidence of tenderness throughout. Back: No spinal tenderness. No costovertebral tenderness. Full range of motion. Skin: Warm, dry with normal turgor. Normal color with no rashes, no lesions, and no evidence of cellulitis. MS/ Extremity: Pulses equal, no cyanosis. Neurovascular intact. Full, normal range of motion. Neuro: Awake and alert, GCS 15, oriented to person, place, time, and situation. Cranial nerves II-XII grossly intact. Motor strength 5/5 in all extremities. Sensory grossly intact. Cerebellar exam normal. Normal gait. Psych: Awake, alert, with orientation to person, place and time. Behavior, mood, and affect are within normal limits. 09:45 Cardiovascular: Rate: tachycardic, Rhythm: regular, Pulses: Pulses are 4+ in bilateral geovanni radial, brachial, femoral, popliteal, posterior tibial and and dorsalis pedis arteries.. Heart sounds: normal, Edema: is not appreciated, JVD: is not appreciated. 09:45 ECG was reviewed by the Attending Physician. Vital Signs: 09:31 BP 137 / 96; Pulse 128; Resp 18 S; Pulse Ox 95% on R/A; aa5 09:58 BP 132 / 77; Pulse 129; Temp 96.1; Pulse Ox 96% ; Weight 72.57 kg; Height 5 ft. 6 in. tc5 (167.64 cm); Pain 0/10; 10:46 BP 130 / 83; Pulse 124; Resp 18; Pulse Ox 99% ; Weight 72.57 kg; Height 5 ft. 6 in. tc5 (167.64 cm); Pain 0/10; 11:56 BP 130 / 87; Pulse 131; Resp 20; Pulse Ox 99% ; tc5 12:38 BP 110 / 77; Pulse 109; Resp 16; Pulse Ox 97% ; tc5 13:12 BP 130 / 88; Pulse 113; Resp 18; Pulse Ox 94% ; tc5 14:13 BP 132 / 80; Pulse 109; Resp 16; Pulse Ox 98% ; Pain 0/10; tc5 15:09 BP 119 / 71; Pulse 109; Resp 16; Pulse Ox 96% ; tc5 16:38 BP 145 / 83; Pulse 108; Resp 18; Pulse Ox 98% ; tc5 17:01 BP 138 / 102; Pulse 117; Resp 17; Pulse Ox 98% ; tc5 18:04 BP 155 / 90; Pulse 110; Resp 16; Pulse Ox 97% ; tc5 19:00 BP 158 / 91; Pulse 115; Resp 20; Pulse Ox 99% on R/A; lh3 20:00 BP 155 / 94; Pulse 119; Resp 18; Pulse Ox 99% on R/A; lh3 21:00 BP 142 / 82; Pulse 117; Resp 18; Pulse Ox 98% on R/A; lh3 22:00 BP 164 / 92; Pulse 110; Resp 18; Pulse Ox 99% on R/A; lh3 23:00 BP 147 / 98; Pulse 103; Resp 18; Pulse Ox 99% on R/A; lh3 09/29 00:00 BP 159 / 99; Pulse 106; Resp 18; Pulse Ox 96% on R/A; lh3 01:19 BP 159 / 95; Pulse 106; Resp 18; Pulse Ox 99% on R/A; lh3 02:21 BP 164 / 95; Pulse 101; Resp 18; Pulse Ox 96% on R/A; lh3 08:16 BP 184 / 116; Pulse Ox 98% on R/A; es2 10:00 BP 174 / 105; Pulse 106; Resp 18; Pulse Ox 99% on R/A; es2 10:17 BP 157 / 98; Pulse 104; Resp 18; Pulse Ox 98% on R/A; es2 12:21 BP 147 / 91; Pulse 108; Resp 18; Pulse Ox 99% on R/A; es2 18:54 BP 151 / 89; Pulse 103; Resp 18; Pulse Ox 98% on R/A; es2 22:03 BP 168 / 99; Pulse 106; Resp 18; Pulse Ox 99% on R/A; bs2 23:00 BP 155 / 96; Pulse 101; Resp 18; Pulse Ox 98% ; bs2 30 00:00 BP 141 / 92; Pulse 101; Resp 17; Temp 97.8(A); Pulse Ox 100% ; Pain 4/10; bs2 02:00 BP 189 / 108; Pulse 111; Resp 16; Temp 98.4(O); Pulse Ox 96% ; Pain 4/10; bs2 04:00 BP 146 / 91 LA Supine (auto/reg); Pulse 97 MON; Resp 18 S; Temp 98.4(O); Pulse Ox 97% bs2 on R/A; Pain 0/10; 12:30 BP 172 / 112; Pulse 93; Resp 20; Pulse Ox 96% on R/A; es2 22:52 BP 173 / 101; Pulse 95; Resp 18; Pulse Ox 96% on R/A; kc4 12/07 00:30 BP 142 / 91; Pulse 83; Resp 16; Pulse Ox 100% ; df1 02:30 BP 159 / 95; Pulse 88; Resp 16; Pulse Ox 100% on R/A; df1 04:30 BP 159 / 109; Pulse 92; Resp 15; Pulse Ox 100% ; df1 05:30 BP 173 / 110; Pulse 96; Resp 15; Temp 99.0; Pulse Ox 100% ; Pain 3/10; df1 12/04 10:46 Body Mass Index 25.82 (72.57 kg, 167.64 cm) tc5 MDM: 12/04 09:31 Patient medically screened. [facility] 09:46 Differential diagnosis: Ingestion/exposure to seroquel. Differential Diagnosis: CVA, geovanni electrolyte abnormality, alcohol intoxication, hypoglycemia, overdose, volume depletion. Data reviewed: vital signs, nurses notes, lab test result(s), EKG, radiologic studies, CT scan, plain films. Data interpreted: laboratory monitor: rate is 128 beats/min, rhythm is regular. Test interpretation: by ED physician or midlevel provider: ECG, plain radiologic studies. Counseling: I had a detailed discussion with the patient and/or guardian regarding: the historical points, exam findings, and any diagnostic results supporting the discharge/admit diagnosis, lab results, radiology results. 12/05 06:37 ED course: Resting comfortably, NAD, VSS. no focal neurological deficits. Cooperative mh7 with staff. Awaiting acceptance and transfer to a psychiatric facility.. 18:24 ED course: The patient continues to rest comfortably and has not required any further kdr intervention either chemically or otherwise. 12/06 04:05 ED course: Patient vital signs stable. Not in any distress. Awaiting transfer to [facility] psychiatric facility.. 21:27 ED course: I evaluated the patient, he sober up, back to normal, he feels depressed, ma2 regretted what happened, however he has been feeling depressed over the last week, with unusual life situation, going through divorce, unemployed, no support system. Recreational drug use. High risk suicidal attempt, he would benefit from inpatient evaluation. He agrees to inpatient transfer, I made him aware of possibility of waiting in the ER until we find placement. His blood work shows mild hypokalemia otherwise unremarkable exam. And he is medically cleared. 12/04 09:38 Order name: Basic Metabolic Panel [facility] 12/04 09:38 Order name: CBC with Diff [facility] 12/04 09:38 Order name: LFT's; Complete Time: 10:45 [facility] 12/04 09:38 Order name: Magnesium; Complete Time: 10:45 [facility] 12/04 09:38 Order name: NT PRO-BNP; Complete Time: 10:45 [facility] 12/04 09:38 Order name: PT-INR; Complete Time: 10:45 [facility] 12/04 09:38 Order name: Troponin (emerg Dept Use Only); Complete Time: 10:45 [facility] 12/04 09:38 Order name: Acetaminophen; Complete Time: 10:45 [facility] 12/04 09:38 Order name: ETOH Level; Complete Time: 10:45 [facility] 12/04 09:38 Order name: Ptt, Activated; Complete Time: 10:45 [facility] 12/04 09:38 Order name: Salicylate; Complete Time: 10:45 [facility] 12/04 09:38 Order name: Urine Drug Screen; Complete Time: 11:05 [facility] 12/04 09:39 Order name: Basic Metabolic Panel; Complete Time: 10:45 EDCT 12/04 09:38 Order name: XRAY Chest (1 view); Complete Time: 10:45 [facility] 12/04 09:38 Order name: CT Head Brain wo Cont; Complete Time: 10:45 [facility] 12/04 09:39 Order name: CBC with Automated Diff; Complete Time: 10:45 [facility] 12/04 09:43 Order name: Depakote [facility] 12/04 09:44 Order name: Valproic Acid (Depakene) Level; Complete Time: 10:45 EDCT 12/04 10:31 Order name: Urine Dipstick-Ancillary; Complete Time: 10:45 [facility] 12/04 11:13 Order name: SARS-COV-2 RT PCR; Complete Time: 12:57 EDCT 12/05 12:58 Order name: ETOH Level [facility] 12/05 12:59 Order name: Alcohol Serum/Plasma; Complete Time: 04:07 [facility] 12/04 09:38 Order name: EKG; Complete Time: 09:39 [facility] 12/04 09:38 Order name: Cardiac monitoring; Complete Time: 15:11 [facility] 12/04 09:38 Order name: EKG - Nurse/Tech; Complete Time: 09:43 [facility] 12/04 09:38 Order name: IV Saline Lock; Complete Time: 09:49 [facility] 12/04 09:38 Order name: Labs collected and sent; Complete Time: 09:49 [facility] 12/04 09:38 Order name: O2 Per Protocol; Complete Time: 15:11 [facility] 12/04 09:38 Order name: O2 Sat Monitoring; Complete Time: 15:11 [facility] 12/04 09:38 Order name: Suicide Screening ([place]); Complete Time: 15:10 [facility] 12/04 09:38 Order name: Urine Dipstick-Ancillary (obtain specimen); Complete Time: 15:10 geovanni 12/04 09:38 Order name: Seizure Precautions; Complete Time: 09:42 geovanni 12/04 15:43 Order name: Diet Finger Food; Complete Time: 15:44 bd 12/05 08:14 Order name: Diet Finger Food; Complete Time: 08:14 bd 12/05 11:46 Order name: Diet Finger Food; Complete Time: 11:46 bd 12/06 15:33 Order name: Diet Finger Food; Complete Time: 15:34 es2 12/04 09:38 Order name: Foreman; Complete Time: 15:10 [facility] EC/28 09:45 Rate is 126 beats/min. Rhythm is regular. QRS [place] is Normal. OR interval is normal. [facility] QRS interval is normal. QT interval is normal. No Q waves. T waves are Normal. No ST changes noted. Clinical impression: Sinus tachycardia and No evidence of ischemia. Interpreted by me. Reviewed by me. Administered Medications: 09:44 Drug: NS 0.9% 1000 ml Route: IV; Rate: 1 bolus; Site: right forearm; tc5 11:41 Follow up: IV Status: Completed infusion; IV Intake: 1000ml tc5 10:36 Drug: Pepcid (famotidine) 20 mg Route: IVP; Site: right forearm; tc5 11:42 Follow up: Response: No adverse reaction tc5 13:15 Follow up: Response: No adverse reaction tc5 10:37 Drug: Magnesium Sulfate 2 grams Route: IVPB; Infused Over: 2 hrs; Site: right forearm; tc5 12:17 Follow up: IV Status: Completed infusion tc5 13:15 Follow up: Response: No adverse reaction tc5 10:46 CANCELLED (Duplicate Order): Potassium Effervescent Tablet 25 mEq PO once; dissolve in [facility] 4 ounces of water or juice 11:41 Drug: Potassium Effervescent Tablet 50 mEq Route: PO; tc5 13:14 Follow up: Response: No adverse reaction tc5 11:42 Drug: D5-1/2 NS 1000 ml Route: IV; Rate: 150 ml/hr; Site: right forearm; tc5 21:59 Follow up: Response: No adverse reaction; IV Status: Completed infusion lh3 13:56 Drug: Topicort Cream 0.05 % 1 application {Note: applied to BUE..} Route: Topical; tc5 Site: affected area; 15:10 Follow up: Response: No adverse reaction tc5 12/05 09:06 Drug: Lisinopril 20 mg Route: PO; es2 09:37 Follow up: Response: No adverse reaction es2 09:09 Drug: NS 0.9% 1000 ml Route: IV; Rate: 1 bolus; Site: right forearm; es2 09:38 Follow up: Response: No adverse reaction es2 11:00 Follow up: IV Status: Completed infusion es2 21:21 CANCELLED (dosage changee): Depakote (divalproex) 100 mg PO once bs2 21:55 Drug: SEROquel (QUEtiapine) 200 mg Route: PO; bs2 12/06 02:39 Follow up: Response: No adverse reaction bs2 02:40 Follow up: Response: No adverse reaction bs2 12/05 21:55 Drug: Depakote (divalproex) 250 mg Route: PO; bs2 12/06 02:40 Follow up: Response: No adverse reaction bs2 12/05 22:01 Drug: Albuterol HFA Inhaler 2 puffs Route: Inhalation; bs2 12/06 02:39 Drug: Metoprolol TARTRATE 50 mg Route: PO; bs2 04:49 Follow up: Response: No adverse reaction bs2 02:39 Drug: Motrin (ibuprofen) 600 mg Route: PO; bs2 04:50 Follow up: Response: No adverse reaction bs2 11:50 Drug: Valproic Acid 250 mg Route: PO; es2 12:34 Follow up: Response: No adverse reaction es2 16:04 Drug: Motrin (ibuprofen) 600 mg Route: PO; es2 17:51 Follow up: Response: No adverse reaction es2 16:04 Drug: Lisinopril 20 mg Route: PO; es2 17:50 Follow up: Response: No adverse reaction es2 22:56 Drug: SEROquel (QUEtiapine) 200 mg Route: PO; bs2 22:56 Follow up: Response: No adverse reaction bs2 22:56 Not Given (can not locate in hospitall): Depakene (valproic acid) 250 mg PO once bs2 23:16 Drug: Metoprolol 50 mg Route: PO; bs2 12/07 02:39 Follow up: Response: No adverse reaction df1 12/06 23:33 Drug: Depakote (divalproex) 250 mg Route: PO; bs2 12/07 02:39 Follow up: Response: No adverse reaction df1 02:39 Drug: morphine 2 mg Route: IVP; Site: right forearm; df1 05:46 Follow up: Response: No adverse reaction df1 05:00 Drug: Dilaudid (HYDROmorphone) 1 mg Route: IVP; Site: right forearm; df1 05:46 Follow up: Response: No adverse reaction df1 05:47 Drug: Depakote (divalproex) 250 mg Route: PO; df1 05:49 Follow up: Response: No adverse reaction df1 Disposition Summary: 12/04/20 10:59 Transfer Ordered Transfer Location: Psych Facility geovanni Reason: Higher level of care geovanni Condition: Fair geovanni Problem: new geovanni Symptoms: have improved geovanni Accepting Physician: dr. dow(12/07/20 06:06) mw2 Diagnosis - Suicidal ideations geovanni - Suicide attempt geovanni - Adjustment disorder with anxiety geovanni - Major depressive disorder, recurrent, moderate geovanni - Cocaine abuse geovanni - Alcohol abuse with intoxication geovanni Forms: - Medication Reconciliation Form geovanni - SBAR form geovanni Signatures: Dispatcher [employer] EDJames Erwin MD MD cha Lam, Pin, MD MD pkl Rittger, Kevin, MD MD kdr Mickail, Joel, PA PA jmm Nieto, Roman, MD MD rn Calderon, Audri RN RN aa5 Tran Pedroza MD MD ma2 [place], MyKena mw2 Byron Adrian MD MD mh7 Reanna Mcbride RN RN bs2 Earlene Bonds df1 Latesha Mcbride RN RN es2 Eva Wong RN RN tc5 Cyndie Davis RN lh3 Corrections: (The following items were deleted from the chart) 12/04 10:20 09:39 CORONAVIRUS+BRZ ordered. EDMS EDMS 10:46 10:46 Potassium Effervescent Tablet 25 mEq PO once; dissolve in 4 ounces of water or geovanni juice ordered. geovanni 11:06 10:59 to psych geovanni geovanni 12/05 21:21 21:15 Depakote (divalproex) 100 mg PO once ordered. bs2 bs2 21:21 21:21 Depakote (divalproex) 100 mg PO once ordered. bs2 2 12/07 05:16 12/04 11:06 to psych [place] [id number] 12/07 05:16 05:03 shwetha. ma2 de2 06:06 05:16 dr. dow [facility]
[2020-12-04 11:04] LABS: Barbiturates NEGATIVE (NEGATIVE); Benzodiazepines NEGATIVE (NEGATIVE); Cocaine POSITIVE (NEGATIVE); METHAMPHETAM NEGATIVE (NEGATIVE); Methadone NEGATIVE (NEGATIVE); Opiates NEGATIVE (NEGATIVE); Phencyclidine NEGATIVE (NEGATIVE); THC Cannibis NEGATIVE (NEGATIVE)
[2020-12-04] MEDS ORDERED: POTASSIUM 25 MEQ EFFERV TAB ONE (12:03)
[2020-12-04] MEDS ORDERED: BETAMETHASONE DIP 0.05% CREAM TOP ONE (13:15)
--- NOTE | 2020-12-04 16:40 | EKG ---
Test Date: 2020-12-04 Test Time: 09:34:14 Clinical Orthoptist: MORIAH MEASUREMENT RESULTS: Intervals: Rate: 126 SC: 132 QRSD: 84 QT: 328 QTc: 475 [place]: P: 64 SC: 132 QRS: 79 T: 29 INTERPRETIVE STATEMENTS: Sinus tachycardia Otherwise normal ECG Compared to ECG 03/25/2020 19:28:28 No significant changes Electronically Signed On 12-04-20 16:38:53 CDT by Knean Kaufman
[2020-12-05] MEDS ORDERED: lisinopriL 20 MG TAB ONE (09:28)
[2020-12-05] MEDS ORDERED: NA CHLORIDE 0.9% 1,000 ML ONE (09:31)
[2020-12-05] MEDS ORDERED: ALBUTEROL INHALER 60 PUFF/8 GM IH ONE (21:45)
[2020-12-05] MEDS ORDERED: QUETIAPINE 100MG TAB ONE (22:04)
[2020-12-05] MEDS ORDERED: DIVALPROEX DR 500MG TAB PO ONE (22:05)
[2020-12-06] MEDS ORDERED: IBUPROFEN 200 MG TAB PO ONE ×2 (03:00→16:27)
[2020-12-06] MEDS ORDERED: IBUPROFEN 400 MG TAB ONE ×2 (03:00→16:27)
[2020-12-06] MEDS ORDERED: METOPROLOL TAR 50 MG TAB ONE ×2 (03:00→23:37)
[2020-12-06] MEDS ORDERED: DIVALPROEX DR 250 MG TAB PO ONE ×2 (12:13→23:58)
[2020-12-06] MEDS ORDERED: lisinopriL 20 MG TAB ONE (16:27)
[2020-12-06] MEDS ORDERED: QUETIAPINE 100MG TAB ONE (23:05)
[2020-12-07] MEDS ORDERED: DIVALPROEX DR 250 MG TAB PO ONE (00:22)
[2020-12-07] MEDS ORDERED: MORPHINE 2 MG/ML SYR ONE (03:01)
[2020-12-07] MEDS ORDERED: HYDROMORPHONE HCL 2 MG/ML inj ONE (05:11)
[2020-12-07 06:56] VITALS: O2SAT 100
[2020-12-07 07:00] VITALS: BP 173/110; TEMP 99
== END 2020-12-07 06:06 ==
LOC: ER 09:28
DX: T43.592A Poisoning by other antipsychotics and neuroleptics, intentional self-harm, initial encounter (principal); R53.1 Weakness; F33.1 Major depressive disorder, recurrent, moderate; F43.22 Adjustment disorder with anxiety; F14.10 Cocaine abuse, uncomplicated; F10.129 Alcohol abuse with intoxication, unspecified; Z20.822 Contact with and (suspected) exposure to COVID-19; I10 Essential (primary) hypertension; Z88.5 Allergy status to narcotic agent
CPT/HCPCS: 36415; 70450; 71045; 80048; 80076; 80164; 80307; 80320; 80329; 81003; 83735; 83880; 84484; 85025; 85610; 85730; 93005; 96361; 96365; 96366; 96375; 99285; J1170; J2270; J3475; J7030; J7799; U0003